=== PATIENT | male | born 1990 | race Caucasian/White ===

== ENCOUNTER 2021-04-03 11:20 | Emergency (ER) | payer SELFPAY ==
--- NOTE | ~2021-04-03 | CT_ITS ---
EXAMINATION: CT SOFT TISSUE NECK WITH CONTRAST CLINICAL INFORMATION: Right-sided neck pain radiating to the ears. COMPARISON: None available. TECHNIQUE: Multidetector helical imaging was performed in the axial plane following the administration of 60 mL of Omnipaque 350 intravenous contrast. Multiple axial reformats and coronal/sagittal reconstructions were created the technologist workstation for review. This CT examination was performed using dose optimization techniques as appropriate, variously including the following: *Automated exposure control. *Adjustment of mA and/or kV according to patient size (this includes techniques or standardized protocols for targeted exams where dose is matched to indication/reason for exam; i.e. extremities or head). *Use of iterative reconstruction technique. DLP: 684 mGy-cm FINDINGS: No significant cutaneous thickening or subcutaneous inflammation. No discrete fluid collection within the deep tissues of the neck. The premaxillary, retromaxillary, pterygopalatine fossa, orbital apical, parapharyngeal, and prelaryngeal adipose tissue is maintained. Normal appearance of the parotid, submandibular, and thyroid glands. Mildly prominent right level III lymph node measuring 1.4 cm. Otherwise, scattered subcentimeter lymph nodes bilaterally, none of which are pathologically enlarged or abnormally enhancing. No demonstrated focal lesion or abnormal enhancement within the intrinsic tissues of the tongue or floor of mouth. Normal mucosal contours of the pharynx and larynx without abnormal enhancement. Normal appearance of the hyoid bone, thyroid cartilage, or cartilaginous trachea. The airways remains widely patent. No radiopaque foreign bodies. The atlantooccipital and atlantoaxial articulations remain well aligned. Straightening of the normal cervical lordosis. No evidence of acute fracture or subluxation of the cervical spine. The vertebral body heights are maintained. Moderate degenerative disc disease at C5-C6 with disc-osteophyte complex formation. Mild degenerative disc disease at C3-C4, C4-C5, and C6-C7 facet and uncovertebral joint arthropathy leads to osseous encroachment on the neural foramina at C3-C4 and C5-C6. No evidence of epidural collection. There is no prevertebral soft tissue swelling. Normal opacification of the cervical arterial and venous structures. The visualized portion of the skull base is without significant abnormalities. Mild mucosal thickening of the paranasal sinuses. The mastoid air cells and middle ear cavities are clear. No demonstrated significant periapical odontogenic disease. CT Upper Chest: The visualized lung apices and upper mediastinum are within normal limits. CT/CT soft tissue neck w con IMPRESSION: 1. Nonspecific mildly prominent right level III lymph node. No additional cervical lymphadenopathy. 2. No additional demonstrated mass lesion, collection, or abnormal enhancement within the soft tissues of the neck. 3. Mild to moderate degenerative spondyloarthropathy of the cervical spine.
[2021-04-03 11:33] VITALS: BP 125/90; PULSE 88; RESP 16; TEMP 36.7; O2SAT 99; BMI 25.5
[2021-04-03 12:58] LABS: MANUAL DIFF FLAG NO
[2021-04-03 13:00] LABS: Basophils Percent Auto 0.3 % (0-2); Eosinophils Absolute Auto 0.1 X10*3/uL (0.0-0.4); Eosinophils Percent Auto 0.9 % (0-4); Hematocrit 47.8 % (42-52); Hemoglobin 16.1 g/dl (14.0-18.0); Imm Gran Abs Auto 0.06 X10*3/uL (0.00-0.03); Imm Gran Pct Auto 0.6 % (0.0-0.4); Lymphocytes Absolute Auto 1.3 X10*3/uL (1.2-4.9); Lymphocytes Percent Auto 13.6 % (20-40); Mean Corpuscular HGB Conc 33.7 g/dl (31.0-36.0); Mean Corpuscular Hemoglobin 29.1 pg (27.0-33.0); Mean Corpuscular Volume 86.4 fL (80-98); Mean Platelet Volume 10.4 fL (9.4-12.4); Monocytes Absolute Auto 0.5 X10*3/uL (0.1-1.2); Monocytes Percent Auto 5.5 % (2-11); Neutrophils Absolute Auto 7.3 X10*3/uL (2.0-8.3); Neutrophils Percent Auto 79.1 % (45-73); Platelet Count 213 X10*3/uL (160-400); Red Blood Count 5.53 X10*6/uL (4.60-5.80); Red Cell Distribution Width 12.7 % (11.0-16.0); White Blood Count 9.3 X10*3/uL (4.8-10.8)
[2021-04-03 13:07] LABS: IDNOW Serial# 9DD0AD1C; Strep A Nucleic Acid Negative (Negative)
[2021-04-03 13:13] LABS: Alanine Aminotransferase 57 U/L (0-40); Albumin Level 4.8 g/dL (3.5-5.0); Alkaline Phosphatase 70 U/L (39-117); Anion Gap 12 (12-20); Aspartate Amino Transferase 30 U/L (5-37); Bilirubin Total 0.8 mg/dL (0.0-1.0); Blood Urea Nitrogen 12 mg/dL (9-16); Calcium 9.8 mg/dL (8.4-10.2); Carbon Dioxide 28 mmol/L (22-29); Chloride 104 mmol/L (96-108); Creatinine Clr Calc Pharmacy 113.9; Estimated Glomerular Filt Rate > 60; Glucose Random 104 mg/dL (60-115); Potassium 5.1 mmol/L (3.3-5.1); Sodium 139 mmol/L (135-145); Total Protein 7.7 g/dL (6.5-8.0)
[2021-04-03] MEDS: Ketorolac Tromethamine 15 MG/ML VIAL 30 MG IVPUSH (13:35)
--- NOTE | 2021-04-03 14:21 | ED.NECK ---
HPI - Neck Pain/Injury General Chief Complaint: General Medical Stated Complaint: neck pain/jaw pain Time Seen by Provider: 04/03/21 12:21 Source: patient Mode of arrival: ambulatory Limitations: no limitations History of Present Illness HPI Narrative: 30-year-old male presenting to the ED with complaints of atraumatic right lateral neck pain/throat pain that began last Saturday. He reports that he does not have any pain with swallowing. He reports that the pain does radiated to his bilateral jaw and right ear. He reports he has been self medicating with doxycycline at home that he had left over reports some improvement. Reports intermittent headaches. Denies any fevers, chills, sore throat, rhinorrhea, nasal congestion, trouble swallowing or breathing, swelling of the neck, change of voice, chest pain or shortness of breath, cough, dyspnea exertion, orthopnea, rashes or any other symptoms complaints or concerns at this time. MD complaint: neck pain Onset (ago): day(s) (Five days ago) Radiation: right lateral Severity: mild Quality: sharp Duration: constant Relieving factors: none Exacerbating factors: none Associated symptoms: other (Radiating to bilateral jaws and right ear) Treatments prior to arrival: none Related Data Previous Rx's Medication Instructions Recorded doxycycline hyclate 100 mg tablet 100 mg PO BID 10 Days #20 tab 04/03/21 Allergies Allergy/AdvReac Type Severity Reaction Status Date / Time amoxicillin [AMOXICILLIN] Allergy Unknown UNKNOWN Unverified 03/10/20 16:43 penicillin V Allergy Unknown Verified 07/10/19 00:00 Penicillins [PENICILLINS] Allergy Unknown UNKNOWN Unverified 03/10/20 16:43 Review of Systems Review of Systems: Constitutional : No trauma, No Weight loss, No Fever, No Chills, ENT/Mouth : No Hearing loss, No Ear Pain, No Nasal Congestion, No Sinus Pain, No Hoarseness, No sore throat, No Rhinorrhea, No Swallowing Difficulty Cardiovascular : No Chest Pain, No SOB Respiratory : No Cough, No Dyspnea Gastrointestinal : No Nausea, No Vomiting, No Diarrhea, No abdominal Pain, No Hematochezia, No Melena Genitourinary : No Dysuria, No Urinary Frequency, No Hematuria, No Urinary or Bowel Incontinence/retention Musculoskeletal : + Neck pain, No Back pain, No joint stiffness, No joint swelling Skin : No Skin Lesions, No rash or signs of infection Neuro : nO Tingling to b/l arms/legs, No Weakness, No radiation, No Numbness, No headache, no loss of bowel or bladder incontinence, no saddle anesthesia Denies history of IV drug usage. Yes all other systems are reviewed and are negative [facility] Past Medical History Attestation statement: The following information was validated with the patient. Medical History GERD (gastroesophageal reflux disease) Surgical History [place] teeth extracted Social History Social History Advance Directives: No Advance Directives Information Provided: No Physical Exam Vital Signs: Vital Signs: Last Vital Signs Temp 98.1 F 04/03/21 11:33 Pulse 88 04/03/21 11:33 Resp 18 04/03/21 14:30 BP 125/90 H 04/03/21 11:33 Pulse Ox 99 04/03/21 11:33 Body Mass Index 25.5 vital signs have been reviewed as normal and appeared to be correct. Blood pressure normal. Heart rate normal. Respiration rate normal. Temperature normal. Oxygen saturation normal. Appearance: Alert. Oriented X3. No acute distress. Head: Normal external exam. Normocephalic. Atraumatic. Eyes: PERRLA. EOMI. Conjunctiva and sclera normal. Eyelids normal. ENT: Pharynx normal. Uvula midline. Moist mucous membranes. No trismus noted. No drooling noted. No muffled voice noted. Neck: Normal inspection. Neck supple. FROM. No adenopathy. Thyroid Normal. Trachea midline. No meningeal signs. No neck mass noted. Tender to palpation of right anterior/lateral paracervical musculature. No mid cervical tenderness step-off or deformities are noted. Patient neuro intact bilaterally and distally on all 4 extremities. Reflexes intact bilaterally and distally in all 4 extremities. No rashes/lesion/induration/fluctuance or signs of infection noted. No edema noted. CVS: Normal heart rate and rhythm. Heart sound normal. No murmurs noted. Pulses normal throughout. Respiratory: No respiratory distress. Painless inspiration. Breath sounds normal. No wheezes/rales/rhonchi noted. Chest nontender. No accessory muscle usage noted or decreased air movement noted. Back: Full range of motion noted. No obvious deformities, or edema. Full ROM in back and lower extremities. Skin: Skin warm and dry. Normal skin color. Normal skin turgor. No rashes/lesions/lacerations noted. Extremities: Extremities exhibit normal range of motion. Extremities nontender. Neuro: Oriented X 3. No motor deficit. No sensory deficit. Reflexes normal. Normal steady gait. Course Course Course Narrative: 12:35pm 30-year-old male presenting to the ED with complaints of atraumatic right lateral neck pain/throat pain that began last Saturday. He reports that he does not have any pain with swallowing. He reports that the pain does radiated to his bilateral jaw and right ear. He reports he has been self medicating with doxycycline at home that he had left over reports some improvement. Reports intermittent headaches. Denies any fevers, chills, sore throat, rhinorrhea, nasal congestion, trouble swallowing or breathing, swelling of the neck, change of voice, chest pain or shortness of breath, cough, dyspnea exertion, orthopnea, rashes or any other symptoms complaints or concerns at this time. Pt c likely muscular pain, but could be herniated disc. Neuro exam shows no deficits. Not c/w vascular etiology, perivertebral / other soft tissue neck / airway infection, or spinal fx / process. Although patient very concerned therefore will obtain labs and a CT scan of soft tissue neck to evaluate for possible masses or any other acute processes then re-evaluate. Reevaluation(s) Reevaluation #1: - ALT 57 otherwise all other labs are within normal limits. Rapid strep is negative. CT scan of soft tissue neck with IV contrast 3 lymph node otherwise no other acute processes only chronic changes. Therefore I gave him a copy of the results and he asked for prescription of doxycycline as he reports that he started taking it and it is helping his symptoms could be a possibly pharyngitis that was negative on rapid strep therefore will DC home with instructions follow-up with primary care provider and to return if any new or worsening symptoms. Patient understands agrees with this plan. Time: 15:08 [facility] - Neck Pain/Injury Medical Records Attestation: I reviewed the patient's medical records. Lab Data Attestation: I reviewed the patient's lab results. Result diagrams: 04/03/21 12:54 04/03/21 12:54 Labs: Lab Results 04/03/21 04/03/21 04/03/21 Range/Units 12:54 12:54 12:55 WBC 9.3 (4.8-10.8) X10*3/uL RBC 5.53 (4.60-5.80) X10*6/uL Hgb 16.1 (14.0-18.0) g/dl Hct 47.8 (42-52) % MCV 86.4 (80-98) fL MCH 29.1 (27.0-33.0) pg MCHC 33.7 (31.0-36.0) g/dl RDW 12.7 (11.0-16.0) % Plt Count 213 (160-400) X10*3/uL MPV 10.4 (9.4-12.4) fL Immature Gran % (Auto) 0.6 H (0.0-0.4) % Neut % (Auto) 79.1 H (45-73) % Lymph % (Auto) 13.6 L (20-40) % [place] % (Auto) 5.5 (2-11) % Eos % (Auto) 0.9 (0-4) % Baso % (Auto) 0.3 (0-2) % Lymph # (Auto) 1.3 (1.2-4.9) X10*3/uL [place] # (Auto) 0.5 (0.1-1.2) X10*3/uL Eos # (Auto) 0.1 (0.0-0.4) X10*3/uL Baso # (Auto) 0.0 (0.0-0.2) X10*3/uL Abs Immat Gran (auto) 0.06 H (0.00-0.03) X10*3/uL Absolute Neuts (auto) 7.3 (2.0-8.3) X10*3/uL Absolute Nucleated RBC 0.000 (0.0-0.012) X10*3/uL Nucleated RBC % (auto) 0.0 (0.0-0.2) /100WBC Sodium 139 (135-145) mmol/L Potassium 5.1 (3.3-5.1) mmol/L Chloride 104 (96-108) mmol/L Carbon Dioxide 28 (22-29) mmol/L Anion Gap 12 (12-20) BUN 12 (9-16) mg/dL Creatinine 0.87 (0.5-1.4) mg/dL Estim Creat Clear Calc 113.9 Estimated GFR > 60 Random Glucose 104 (60-115) mg/dL Calcium 9.8 (8.4-10.2) mg/dL Magnesium 2.0 (1.6-2.6) mg/dL Total Bilirubin 0.8 (0.0-1.0) mg/dL AST 30 (5-37) U/L ALT 57 H (0-40) U/L Alkaline Phosphatase 70 (39-117) U/L Total Protein 7.7 (6.5-8.0) g/dL Albumin 4.8 (3.5-5.0) g/dL TSH 1.00 (0.32-4.0) uIU/mL S. pyogenes GrpA COSME Negative (Negative) Imaging Data CT scan of soft tissue neck with IV contrast: Attestation: I personally reviewed and interpreted this imaging study as follows: Radiologist's impression: FINDINGS: No significant cutaneous thickening or subcutaneous inflammation. No discrete fluid collection within the deep tissues of the neck. The premaxillary, retromaxillary, pterygopalatine fossa, orbital apical, parapharyngeal, and prelaryngeal adipose tissue is maintained. Normal appearance of the parotid, submandibular, and thyroid glands. Mildly prominent right level III lymph node measuring 1.4 cm. Otherwise, scattered subcentimeter lymph nodes bilaterally, none of which are pathologically enlarged or abnormally enhancing. No demonstrated focal lesion or abnormal enhancement within the intrinsic tissues of the tongue or floor of mouth. Normal mucosal contours of the pharynx and larynx without abnormal enhancement. Normal appearance of the hyoid bone, thyroid cartilage, or cartilaginous trachea. The airways remains widely patent. No radiopaque foreign bodies. The atlantooccipital and atlantoaxial articulations remain well aligned. Straightening of the normal cervical lordosis. No evidence of acute fracture or subluxation of the cervical spine. The vertebral body heights are maintained. Moderate degenerative disc disease at C5-C6 with disc-osteophyte complex formation. Mild degenerative disc disease at C3-C4, C4-C5, and C6-C7 facet and uncovertebral joint arthropathy leads to osseous encroachment on the neural foramina at C3-C4 and C5-C6. No evidence of epidural collection. There is no prevertebral soft tissue swelling. Normal opacification of the cervical arterial and venous structures. The visualized portion of the skull base is without significant abnormalities. Mild mucosal thickening of the paranasal sinuses. The mastoid air cells and middle ear cavities are clear. No demonstrated significant periapical odontogenic disease. CT Upper Chest: The visualized lung apices and upper mediastinum are within normal limits. CT/CT soft tissue neck w con IMPRESSION: 1. Nonspecific mildly prominent right level III lymph node. No additional cervical lymphadenopathy. ? 2. No additional demonstrated mass lesion, collection, or abnormal enhancement within the soft tissues of the neck. ? 3. Mild to moderate degenerative spondyloarthropathy of the cervical spine. Critical Care Time Critical Care Time Critical Care Time: Yes Total Critical Care Time: 60 Attestation: I personally attest to this time spent taking care of the patient Discharge Plan Discharge Clinical Impression: Enlarged lymph node in neck, Neck pain Patient Disposition: Home, Self-Care Instructions: Lymphadenopathy (ED) Prescriptions: New doxycycline hyclate 100 mg tablet 100 mg PO BID 10 Days Qty: 20 RF: 0 Referrals: Reymundo Mcgarry [Physician] - 2 days (If your symptoms persist you should follow-up with ear nose and throat doctor you can call above) Stand Alone Forms: Work/School Release Print Language: Iranian
[2021-04-03 14:30] VITALS: RESP 18
[2021-04-03] MEDS: iohexoL 350 MG/ML 100 ML INFUS..BTL IV (14:30)
== END 2021-04-03 15:15 | disposition home or self-care (01) ==
PROVIDERS: Physician Assistant Medical; Emergency Provider Emergency Medicine; PCP Internal Medicine
DX: M54.2 Cervicalgia (principal); R59.0 Localized enlarged lymph nodes
CPT/HCPCS: 36415; 70491; 80053; 83735; 84443; 85025; 87651; 96374; 99284; 99291; J1885; Q9967

== ENCOUNTER 2021-11-28 04:32 | Emergency (ER) | payer OTHER, SELFPAY ==
--- NOTE | ~2021-11-28 | XR_ITS ---
EXAMINATION: XR CHEST CLINICAL INFORMATION: Cough COMPARISON: None TECHNIQUE: 2 views of the chest were obtained. FINDINGS: No significant abnormality is noted involving the heart, lungs, mediastinum, bony thorax or soft tissues. XR/XR chest 2V IMPRESSION: Unremarkable examination.
[2021-11-28 04:40] VITALS: BP 133/90; PULSE 93; RESP 18; TEMP 36.7; O2SAT 95; BMI 25.8
--- NOTE | 2021-11-28 04:48 | ED_ITS ---
HPI - URI/Sore Throat General Chief Complaint: Upper Respiratory Symptoms Stated Complaint: ongoing cough x1 month Time Seen by Provider: 11/28/21 04:34 Source: patient Mode of arrival: ambulatory Limitations: no limitations History of Present Illness MD elicited complaint: cough Onset (ago): month(s) (1) Consistency: intermittent Severity: moderate Description of mucous: green Able to tolerate fluids by mouth: Yes Exacerbating factors: nothing Relieving factors: nothing Context: other (possibly started after staying at a hotel with air conditioning) Associated symptoms: fever (at beginning of illness) Treatments prior to arrival: none Related Data Previous Rx's Medication Instructions Recorded doxycycline hyclate 100 mg tablet 100 mg PO BID 10 Days #20 tab 04/03/21 benzonatate 100 mg capsule 100 mg PO TID PRN #20 cap 11/28/21 doxycycline hyclate 100 mg capsule 100 mg PO BID 7 Days #14 cap 11/28/21 prednisone 20 mg tablet 40 mg PO DAILY 5 Days #10 tab 11/28/21 Allergies Allergy/AdvReac Type Severity Reaction Status Date / Time amoxicillin [AMOXICILLIN] Allergy Unknown UNKNOWN Unverified 03/10/20 16:43 penicillin V Allergy Unknown Verified 07/10/19 00:00 Penicillins [PENICILLINS] Allergy Unknown UNKNOWN Unverified 03/10/20 16:43 Review of Systems Review of Systems: Constitutional : No Fever, No Chills ENT/Mouth : No sore throat, No Rhinorrhea Eyes: No Eye Pain, No Swelling, No Redness Cardiovascular : No Chest Pain, No SOB Respiratory : pos Cough, pos Sputum, No Wheezing Gastrointestinal : No Nausea, No Vomiting, No Diarrhea Genitourinary : No Dysuria, No Urinary Frequency, No Hematuria, Musculoskeletal : No joint pain, No Myalgias, No Joint Swelling Skin : No Skin Lesions, No rash Neuro : No Weakness, No Numbness, No Dizziness, No Headache PMFSH Past Medical History Attestation statement: The following information was validated with the patient. Medical History GERD (gastroesophageal reflux disease) Surgical History [place] teeth extracted Social History Social History Alcohol intake: unknown Patient Tobacco Use Status: Never used Tobacco Use of substances other than those prescribed or required for medical reasons: Yes Substance Use Type: Marijuana Physical Exam Vital Signs: Vital Signs: Last Vital Signs Temp 98.1 F 11/28/21 04:40 Pulse 93 11/28/21 04:40 Resp 18 11/28/21 04:40 BP 133/90 H 11/28/21 04:40 Pulse Ox 95 11/28/21 04:58 BMI result Body Mass Index 25.8 Appearance: Alert. Oriented X3. No acute distress. Eyes: Pupils equal, round and reactive to light. ENT: Pharynx normal. Neck: Normal inspection. Neck supple. CVS: Normal heart rate and rhythm. Pulses normal. Respiratory: No respiratory distress. Breath sounds normal. Abdomen: Soft and non-tender. Skin: Skin warm and dry. Normal skin color. Normal skin turgor. Extremities: No lower extremity edema. Neuro: Oriented X 3. No motor deficit. No sensory deficit. 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 At this time COVID swab and CXR for pneumonia ordered. Anticipate treatment for bronchitis - no hypoxia. Discharge Plan Discharge Clinical Impression: Bronchitis Patient Disposition: Home, Self-Care Instructions: Acute Bronchitis (ED) Additional Instructions: return to ED for any worsening symptoms or concerns xray shows no pneumonia COVID negative Prescriptions: New doxycycline hyclate 100 mg capsule 100 mg PO BID 7 Days Qty: 14 0RF prednisone 20 mg tablet 40 mg PO DAILY 5 Days Qty: 10 0RF benzonatate 100 mg capsule 100 mg PO TID PRN (Reason: cough) Qty: 20 0RF No Action doxycycline hyclate 100 mg tablet 100 mg PO BID 10 Days Qty: 20 0RF Referrals: Ernie Schmidt III, MD [Primary Care Provider] - 5 days (if not better) Stand Alone Forms: Work/School Release
[2021-11-28 04:58] VITALS: PULSE 65; O2SAT 95
[2021-11-28 05:30] LABS: COVID-19 Test Negative (Negative); IDNOW Serial# 9DB6401D
== END 2021-11-28 06:02 | disposition home or self-care (01) ==
PROVIDERS: Emergency Provider Emergency Medicine; PCP Internal Medicine
DX: J40 Bronchitis, not specified as acute or chronic (principal); Z20.822 Contact with and (suspected) exposure to COVID-19; F12.90 Cannabis use, unspecified, uncomplicated
CPT/HCPCS: 71046; 87635; 99283; 99284

== ENCOUNTER 2023-10-15 16:35 | Emergency (ER) | payer BC, SELFPAY ==
[2023-10-15 17:30] VITALS: BP 163/114; PULSE 94; RESP 18; TEMP 36.9; O2SAT 98; BMI 26.9
--- NOTE | 2023-10-15 18:45 | ED_ITS ---
HPI - Wound/Laceration General Chief Complaint: Wound/Laceration Stated Complaint: thumb laceration? Time Seen by Provider: 10/15/23 18:45 Source: patient and RN notes reviewed Mode of arrival: ambulatory Limitations: no limitations History of Present Illness HPI narrative: This is a 33-year-old male, with no known medical problems, who presents emergency department with complaints of right thumb laceration. Patient states that he was using a mandolin when suddenly he lacerated his right thumb. He states that the area bled a lot last night however states that today it is no longer bleeding. He reports some pain, but concerned as top skin is absent. No fevers, chills, difficulty moving the thumb. He is unsure when his last tetanus was. No fevers or chills. No other complaints or concerns at this time. Onset (ago): day(s) Context: accidental Associated symptoms: none Related Data Previous Rx's ?Medication ?Instructions ?Recorded doxycycline hyclate 100 mg tablet 100 mg PO BID 10 days #20 tabs 04/03/21 benzonatate 100 mg capsule 100 mg PO TID PRN cough #20 caps 11/28/21 doxycycline hyclate 100 mg capsule 100 mg PO BID 7 days #14 caps 11/28/21 prednisone 20 mg tablet 40 mg (2 x 20 mg) PO DAILY 5 days 11/28/21 #10 tabs Allergies Allergy/AdvReac Type Severity Reaction Status Date / Time amoxicillin [AMOXICILLIN] Allergy Unknown UNKNOWN Verified 10/15/23 17:34 penicillin V Allergy Unknown Anaphylaxis Verified 10/15/23 17:34 Penicillins [PENICILLINS] Allergy Unknown UNKNOWN Verified 10/15/23 17:34 Review of Systems Review of Systems: Yes all other systems are reviewed and are negative Constitutional: Constitutional: Reports as per HPI [facility] Past Medical History Medical History GERD (gastroesophageal reflux disease) Surgical History [place] teeth extracted Social History Social History Alcohol intake: unknown Patient Tobacco Use Status: Never used Tobacco Substance Use Type: Marijuana Advance Directives: No Advance Directives Information Provided: No Physical Exam Vital Signs: Vital Signs: Last Vital Signs Temp 98.0 F 04/23/24 19:01 Pulse 90 10/15/23 19:01 Resp 18 10/15/23 19:01 BP 158/96 H 10/15/23 19:01 Pulse Ox 98 10/15/23 19:01 O2 Del Method Room Air 10/15/23 19:01 BMI result Body Mass Index 26.9 Const: General: cooperative, comfortable and no acute distress Orientation/consciousness: patient oriented x3 Limitations: no limitations HEENT: Head: Yes normal to inspection, Yes normocephalic and Yes atraumatic Ears: hearing grossly normal bilaterally General nose exam: Normal external nose present Face and sinus: Yes normal facial exam Mouth: Normal oral and palatal mucosa present, oropharynx normal and moist mucous membranes Throat: Yes posterior oropharynx normal Eyes: General: appearance normal, both eyes and all related structures Eyelids: Yes eyelids normal Conjunctivae: conjunctivae normal Sclerae: sclerae normal Pupils: Equal, round and reactive pupils present EOM: EOMs intact bilaterally Neck: Neck: Yes normal visual inspection, Yes full ROM and Yes no lymphadenopathy Lymphatic: no lymphadenopathy noted Chest: Chest palpation & inspection: normal inspection of the chest Resp: Effort & Inspection: normal respiratory effort and able to speak in complete sentences Auscultation: clear to auscultation bilaterally, no crackles, no rales, no rhonchi and no wheezes Cardio: Rate: regular rate Rhythm: regular rhythm Heart sounds: S1 normal heart sound present and S2 normal heart sound present GI: Inspection: Yes normal to inspection Skin: Other: Right thumb lateral aspect there is 2 cm superficial avulsion laceration noted. No active bleeding or drainage. No surrounding erythema or warmth. No fluctuance. Tender to palpation, full range of motion of the thumb without difficulty. Strong radial pulse. General skin exam: no rashes or lesions noted Trauma: no lacerations or abrasions Wounds: no wounds Neuro: General: patient oriented x3 and moves all extremities Cranial nerves: Yes Equal, round and reactive pupils present Extrem: General: Yes normal to inspection Right upper extremity: normal to inspection Left upper extremity: normal to inspection Right lower extremity: normal to inspection Left lower extremity: normal to inspection Medications Administered Discontinued Medications Generic Name Dose Route Start Last Admin Trade Name Freq PRN Reason Stop Dose Admin Diphtheria/Tetanus/Acell Pertussis 0.5 ml 10/15/23 18:49 10/15/23 19:46 Diphth,Pertus(Acell),Tet Adult 0.5 Ml Syringe IM 10/15/23 18:50 0.5 ml .ONCE ONE Administration Medical Decision Making Medical Decision Making MDM Narrative: This is a 33-year-old male, with no known medical problems, who presents e [facility] department complaints of right thumb laceration since last night. Patient states that he accidentally lacerated his right thumb on a mandolin. Right thumb with 2 cm avulsion type laceration noted to the lateral aspect of the thumb, no bleeding. Patient unsure when his last tetanus was. Wound was cleansed with Betadine and saline, and Dermabond was applied to wound. Patient tolerated procedure well without any complications or concerns. He has no risk factors for skin infections therefore not treated with any antibiotics as it has not indicated at this time. Discussed return precautions. He understands and agrees with plan. Patient stable for discharge. Differential Diagnosis Differential Diagnoses: The differential diagnosis associated with the presentation includes Puncture wound, cellulitis, avulsion laceration, foreign body Admission/Observation Consideration of admission/observation: Escalation of care including admission/observation considered Escalation of care including admission/observation considered however given workup today not warranted at this time. Procedures Procedure Narrative Procedure Narrative: Wound cleansed using Betadine and saline, closed using Dermabond and dressed with bandage. Patient tolerated procedure well without any complications or concerns. Discharge Plan Discharge Clinical Impression: Avulsion of skin Patient Disposition: Home, Self-Care Instructions: Laceration (ED), Skin Adhesive Care (ED) Additional Instructions: You were seen in the ER for a laceration to your right thumb. We applied skin glue to this area. Do not pick at wound. Do not submerge wound. If the wound gets wet, pat dry. Watch for any increased redness, swelling, drainage, fevers, or chills. If any new or worsening symptoms occur, including but not limited to the above symptoms, chest pain, shortness breast, please return for re-evaluation. Prescriptions: No Action doxycycline hyclate 100 mg tablet 100 mg PO BID 10 Days Qty: 20 0RF doxycycline hyclate 100 mg capsule 100 mg PO BID 7 Days Qty: 14 0RF prednisone 20 mg tablet 40 mg PO DAILY 5 Days Qty: 10 0RF benzonatate 100 mg capsule 100 mg PO TID PRN (Reason: cough) Qty: 20 0RF Interventions: ED Discharge Assessment Last Done: 10/15/23 19:01 Discharge Date/Time: 10/15/23 19:02 Print Language: Welsh
[2023-10-15 19:01] VITALS: BP 158/96; PULSE 90; RESP 18; TEMP 36.7; O2SAT 98
[2023-10-15] MEDS: Diphth,Pertus(ACell),Tet Adult 0.5 ML SYRINGE IM (19:46)
== END 2023-10-15 19:05 | disposition home or self-care (01) ==
PROVIDERS: Emergency Provider Emergency Medicine Emergency Medical Services; PCP Internal Medicine
DX: S61.011A Laceration without foreign body of right thumb without damage to nail, initial encounter (principal); W26.0XXA Contact with knife, initial encounter; Y93.9 Activity, unspecified; Y92.9 Unspecified place or not applicable; Y99.9 Unspecified external cause status; Z23 Encounter for immunization
CPT/HCPCS: 12001; 90471; 90715; 99282; 99284

== ENCOUNTER 2024-11-24 23:21 | Emergency (ER) | payer OTHER, BC, SELFPAY ==
--- NOTE | ~2024-11-24 | CT_ITS ---
CLINICAL HISTORY: bicep tear? CT right humerus without contrast Comparison: None Findings: The long head of the biceps tendon appears to be normally positioned within the bicipital groove. The intra-articular portion of the long head of the biceps tendon is poorly visualized on CT. The short head of the biceps tendon is poorly visualized on CT. The distal biceps tendon is poorly visualized on CT. No hematoma is identified. There is no fracture. Joint alignment is normal. Joint spaces appear normal. IMPRESSION: Limited evaluation of the biceps tendon by CT as described above. The portion of the long head of the biceps tendon within the bicipital groove is probably intact. Consider MRI if a biceps injury remains a clinical concern. This document has been electronically signed by: Kamaljit Kennedy MD on 11/25/2024 04:11:50
[2024-11-24 23:31] VITALS: BP 153/93; PULSE 92; RESP 16; O2SAT 97; BMI 27.1
[2024-11-25] MEDS: Ketorolac Tromethamine 15 MG/ML VIAL IM (02:34)
--- NOTE | 2024-11-25 03:18 | ED.EXTPRO ---
HPI - Extremity Problem General Chief complaint: Extremity Injury, Upper Stated complaint: right arm injury Time Seen by Provider: 11/25/24 01:31 Source: patient Limitations: no limitations History of Present Illness ED Provider: Karie Muñoz PA-C HPI Narrative: 34-year-old male presents with right bicep pain. Patient states while at work, he was attempting to lift a heavy cart, he heard a popping in his right biceps , then developed acute pain and swelling. Patient has no pain unless he engages his bicep. denies paresthesia. Related Data Previous Rx's ?Medication ?Instructions ?Recorded doxycycline hyclate 100 mg tablet 100 mg PO BID 10 days #20 tabs 04/03/21 benzonatate 100 mg capsule 100 mg PO TID PRN cough #20 caps 11/28/21 doxycycline hyclate 100 mg capsule 100 mg PO BID 7 days #14 caps 11/28/21 prednisone 20 mg tablet 40 mg (2 x 20 mg) PO DAILY 5 days 11/28/21 #10 tabs ketorolac 10 mg tablet 10 mg PO Q6H PRN pain #20 tabs 11/25/24 oxycodone 5 mg tablet 5 mg PO Q8H PRN pain #9 tabs 11/25/24 Allergies Allergy/AdvReac Type Severity Reaction Status Date / Time amoxicillin [AMOXICILLIN] Allergy Unknown UNKNOWN Verified 11/24/24 23:33 penicillin V Allergy Unknown Anaphylaxis Verified 11/24/24 23:33 Penicillins [PENICILLINS] Allergy Unknown UNKNOWN Verified 11/24/24 23:33 Review of Systems Review of Systems: Yes all other systems are reviewed and are negative Constitutional: Constitutional: Denies fatigue and Denies fever(s) Musculoskeletal: Musculoskeletal: Reports arthralgias, Reports joint swelling and Reports stiffness Endocrine: Endocrine: Denies fatigue PMFSH Past Medical History Attestation statement: The following information was validated with the patient. Medical History GERD (gastroesophageal reflux disease) Surgical History [place] teeth extracted Social History Social History Alcohol intake: never Patient Tobacco Use Status: Never used Tobacco Smoked in Last 30 Days: No Use of substances other than those prescribed or required for medical reasons: No Substance Use Type: Marijuana Advance Directives: No Do you have a plan to hurt others: No Plan Physical Exam Vital Signs: Vital Signs: Last Vital Signs Pulse 92 11/24/24 23:31 Resp 16 11/24/24 23:31 BP 153/93 H 11/24/24 23:31 Pulse Ox 97 11/24/24 23:31 O2 Del Method Room Air 11/24/24 23:31 BMI result Body Mass Index 27.1 Const: Other: Alert Orientation/consciousness: patient oriented x3 Resp: Effort & Inspection: normal respiratory effort Cardio: Other: normal peripheral perfusion Skin: Other: warm dry no rash Neuro: General: patient oriented x3, gait normal, no focal motor deficits and CN's II-XI intact bilaterally Extrem: Other: no palpable pain over bicipital groove,the right bicep is tense and swollen, patient able to range from the shoulder, however limited from the elbow, developing ecchymosis noted anteriorly over the biceps Psych: Other: calm cooperative Medications Administered Discontinued Medications Generic Name Dose Route Start Last Admin Trade Name Douglasq PRN Reason Stop Dose Admin Ketorolac Tromethamine 15 mg 11/25/24 01:34 11/25/24 02:34 Ketorolac Tromethamine 15 Mg/Ml Vial IM 11/25/24 01:35 15 mg ONCE ONE Administration Medical Decision Making Medical Decision Making MDM Narrative: 34-year-old male presents with right bicep pain. Patient states while at work, he was attempting to lift a heavy cart, he heard a popping in his right biceps , then developed acute pain and swelling. Patient has no pain unless he engages his bicep. denies paresthesia. no chronic issues History: Per patient I have considered the following differential diagnoses: Fracture, dislocation, sprain, biceps tear, biceps tendon rupture, compartment syndrome Plan: I do not see an obvious deformity, I do not feel he has a biceps tendon rupture, I feel he likely has a biceps tear. We will be obtaining a CT scan. Given the mechanism of injury, likely not a fracture or dislocation of the shoulder or elbow. The incident just occurred, doubtful to be compartment syndrome, he is warm, perfused, neurovascularly intact, his pain is not out of proportion with the his exam. We will be giving Toradol for his discomfort CT right humerus:IMPRESSION: Limited evaluation of the biceps tendon by CT as described above. The portion of the long head of the biceps tendon within the bicipital groove is probably intact. Consider MRI if a biceps injury remains a clinical concern. Discharge Plan Discharge Clinical Impression: Tear of right biceps muscle Patient Disposition: Home, Self-Care Instructions: Muscle Strain (ED), How to Use a Sling (ED), P.R.I.C.E. Treatment (ED) Additional Instructions: you were found to have a partial biceps tear. See home care instructions. Use the sling to help support your upper extremity. Use the ketorolac as directed, this is an anti-inflammatory take it with food. Use the oxycodone as needed for further pain, this medication can be constipating, take [id number] Colace, this is a stool softener, to prevent constipation. I am providing you with a contact for our orthopedic service, call tomorrow to make a follow up appointment. Prescriptions: New ketorolac 10 mg tablet 10 mg PO Q6H PRN (Reason: pain) Qty: 20 0RF Rx Instructions: maximum total duration of 5 days from all oral, intranasal, or parenteral formulations. The patient had an intramuscular dose of Toradol here in the emergency room. oxycodone 5 mg tablet 5 mg PO Q8H PRN (Reason: pain) Qty: 9 0RF Rx Instructions: Partial Fill upon patient request. No Action doxycycline hyclate 100 mg tablet 100 mg PO BID 10 Days Qty: 20 0RF doxycycline hyclate 100 mg capsule 100 mg PO BID 7 Days Qty: 14 0RF prednisone 20 mg tablet 40 mg PO DAILY 5 Days Qty: 10 0RF benzonatate 100 mg capsule 100 mg PO TID PRN (Reason: cough) Qty: 20 0RF Referrals: Gentry Shultz MD [Physician] - (right biceps tear) Stand Alone Forms: Work/School Release Print Language: Icelandic
[2024-11-25 04:28] VITALS: BP 153/93; PULSE 92; RESP 16; TEMP 36.6; O2SAT 97
== END 2024-11-25 04:30 | disposition home or self-care (01) ==
PROVIDERS: Emergency Provider Emergency Medicine; PCP Internal Medicine
DX: S46.211A Strain of muscle, fascia and tendon of other parts of biceps, right arm, initial encounter (principal); X50.0XXA Overexertion from strenuous movement or load, initial encounter; Y93.89 Activity, other specified; Y92.9 Unspecified place or not applicable; Y99.0 Civilian activity done for income or pay; M79.601 Pain in right arm
CPT/HCPCS: 73200; 96372; 99284; J1885

== ENCOUNTER → 2024-11-25 01:34 | Outpatient (BNV) | payer OTHER, SELFPAY | PROVIDERS: Emergency Provider Emergency Medicine; PCP Internal Medicine; Visit Provider Radiology Diagnostic Radiology | DX: S46.201A Unspecified injury of muscle, fascia and tendon of other parts of biceps, right arm, initial encounter (principal) | CPT/HCPCS: 73200 ==

== ENCOUNTER 2024-11-26 09:46 | Outpatient (AMB) | payer OTHER, SELFPAY ==
--- NOTE | 2024-11-26 09:47 | A.OFFVIS_ITS ---
Vital Signs 11/26/24 09:53 Height 5 ft 7 in Weight 173 lb BMI 27.1 Handedness Right Intake Visit Reasons: ER f/u Rt bicep muscle tear DOI: 11/24/24 Intake Note: Daryl is a 34 year old right hand dominant male who presents today for a ED visit for his right bicep injury, WC 11/24/24. He states was attempting to lift a heavy cart, he heard a tear in his right biceps , then developed acute pain and swelling. Patient reports his pain is tolerable. He notices feels some muscle spasms. ROM is limited. He states at the date of injury he notices numbness in his hand. Patient is unable to make a fist. Allergies amoxicillin [AMOXICILLIN] Allergy (Unknown, Verified 11/26/24 09:53) UNKNOWN penicillin V Allergy (Unknown, Verified 11/26/24 09:53) Anaphylaxis Penicillins [PENICILLINS] Allergy (Unknown, Verified 11/26/24 09:53) UNKNOWN HPI HPI ER f/u Rt bicep muscle tear WC DOI: 11/24/24: Details: Mr. Calzada is a 34-year-old right-hand dominant male who presents to the office today for evaluation of a right distal biceps tendon injury that he sustained while at work on 11/24/2024. He reports that he was trying to lift a shop cart and felt a sharp pain with a popping sensation. He saw an immediate deformity of the right biceps muscle. He presented to the emergency department where he was given a sling and instructed to follow up with orthopedics outpatient for further evaluation and treatment. 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 Positive hook test. Difficulty with elbow flexion and extension. NVI. Assessment & Plan Assessment & Plan (1) Rupture of right distal biceps tendon: Code(s): S46.211A - Strain of muscle, fascia and tendon of other parts of biceps, right arm, initial encounter Category: Medical Plan Mr. Calzada is a 34-year-old right-hand dominant male who presents to the office today for evaluation of a right distal biceps tendon injury that he sustained while at work on 11/24/2024. He reports that he was trying to lift a shop cart and felt a sharp pain with a popping sensation. He saw an immediate deformity of the right biceps muscle. He presented to the emergency department where he was given a sling and instructed to follow up with orthopedics outpatient for further evaluation and treatment. While in the office today, Dr. Shultz was available to see the patient with me in the office in a collaborative treatment plan was created. Dr. Shultz and Idiscussed in detail the procedure and what to expect pre and post operatively. We discussed the risks, benefits and alternatives to the surgery as well as the rehabilitation course. The risks; which include, but are not limited to infection, bleeding, nerve injury, ongoing pain, swelling, and stiffness, perioperative risk of injury to bones and soft tissues, and blood clots. I?ve answered all questions and with their understanding they have consented to move forward with right distal biceps tendon repair with Dr. Shultz. Coding Level of Care Code New Pt Level 4 (85504) Diagnoses Rupture of right distal biceps tendon S46.211A
[2024-11-26 09:53] VITALS: BMI 27.1
--- OUTSIDE RECORDS SUMMARY | 2024-11-26 11:02 | XMS_ITS | Clinical Summary ---
Author Organization [facility] [address] [place] [address] [place] [phone] Phone Care Team Providers Care Animator Name Role Phone Tyler Pastrana MD Primary Care Provider Allergies Active Allergy Reactions Criticality Noted Date Comments Amoxicillin Rash 05/22/2011 Penicillin V Hives 08/30/2012 Medications albuterol HFA (PROAIR HFA ; PROVENTIL HFA ; VENTOLIN HFA) 90 mcg/actuation inhaler Inhale 2 puffs by mouth. 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 Gastroesophageal reflux disease 02/06/2019 Lactose intolerance 02/06/2019 Depression 12/22/2013 Immunizations Name Administration Dates Next Due Influenza Quadravalent, MDCK , 0.5ml, preservative free (Flucelvax) 6mo and older 04/10/2019 Tdap Tetanus diptheria acell ular pertussis (Boostrix; Adacel) 7yo and older 09/29/2021,04/24/2011 Surgical History Surgery Date Site/Laterality Comments WISDOM TOOTH EXTRACTION 03/2018 PROCEDURE: HISTORICAL WISDOM TEETH EXTRACTION Medical History Medical History Date Comments Cold-induced asthma DX:Cold-davey brooke asthma Back pain DX:Back pain Family History Medical History Relation Name Comments Other: heart disease Father Diabetes Father's side 1 Bipolar disorder Maternal Grandfather Other: Healthy Mother Relation Name Status Comments Father Father's side 1 Father's side 2 Maternal Grandfather Mother Social History Tobacco Use Types Packs/Day Years Used Date Smoking Tobacco: Former Cigarettes Q uit: 03/24/2015 Smokeless Tobacco: Never Alcohol Use Standard Drinks/Week Comments Yes 0 (1 standard drink = 0.6 oz pur e alcohol) Sex and Gender Information Value Date Recorded Sex Assigned at Not on file Legal Sex Male 10:59 AM EST Gender Identity Not on file Sexual Orientation Not on file Obstetrics History Last Filed Vital Signs Vital Sign Reading Time Taken Comments Blood Pressure 122/70 12/03/2023 5:07 PM EDT Pulse 84 12/03/2023 5:07 PM EDT Temperature - - Respiratory Rate - - Oxygen Saturation - - Inhaled Oxygen Concentration - - Weight 73.5 kg (162 lb) 12/03/2023 5:07 PM EDT Height 170.2 cm (5' 7 ) 12/03/2023 5:07 PM EDT Body Mass Index 25.37 12/03/2023 5:07 PM EDT Plan of Treatment Health Maintenance Due Date Last Done Comments Hepatitis B Vaccines (1 of 3 - 19+ 3-dose series) 2007 Pneumococcal Vaccine: Pediatrics (0 to 5 Years) and At-Risk Patients (6 to 64 Years) (1 of 2 - PCV) 2007 Depression Screening 05/22/2022 HIV Screening 05/22/2022 Hepatitis C Screening 05/22/2022 Social Influencers of Health Screening 05/22/2022 COVID-19 Vaccine (3 - 2023-2 5 season) 2024 10/18/2020, 09/27/2020 Influenza Vaccine (Season Ended) 2025 04/10/2019 Cholesterol Screening (Lipid Panel) 10/02/2026 10/02/2021 DTaP,Tdap,and Td Vaccines (3 - Td or Tdap) 09/30/2031 09/29/2021, 04/24/2011 HIB Vaccines Aged Out No longer eligi ble based on patient's age to complete this topic HPV Vaccines Aged Out No longer eligi ble based on patient's age to complete this topic Hepatitis A Vaccines Aged Out No long er eligible based on patient's age to complete this topic IPV Vaccines Aged Out No longer eligi ble based on patient's age to complete this topic MMR Vaccines Aged Out No longer eligi ble based on patient's age to complete this topic Meningococcal ACWY Vaccine Aged Out N o longer eligible based on patient's age to complete this topic Meningococcal B Vaccine Aged Out No l onger eligible based on patient's age to complete this topic RSV Immunization Patients Under 20 months Aged Out No longer eligible b ased on patient's age to complete this topic Varicella Vaccines Aged Out No longer eligible based on patient's age to complete this topic Care Teams Animator Relationship Specialty Start Date End Date Tyler Pastrana MD [address] [place] [address] PCP - General 08/29/22
== END 2024-11-26 10:39 | disposition home or self-care (01) ==
LOC: HO.HOS 09:47
PROVIDERS: PCP Internal Medicine; Visit Provider Physician Assistant
DX: S46.211A Strain of muscle, fascia and tendon of other parts of biceps, right arm, initial encounter (principal)
CPT/HCPCS: 99204

== ENCOUNTER → 2024-11-26 09:46 | Outpatient (BNVA) | payer OTHER, BC, SELFPAY | PROVIDERS: PCP Internal Medicine; Visit Provider Physician Assistant | DX: S46.211A Strain of muscle, fascia and tendon of other parts of biceps, right arm, initial encounter (principal) | CPT/HCPCS: 99202 ==

== ENCOUNTER 2024-11-27 11:25 | Day surgery (SDC) | payer OTHER, BC, SELFPAY ==
--- NOTE | 2024-11-26 10:52 | P.CONAN_ITS ---
Documented by User: Darcy Navarro NP 11/26/24 10:53 HPI - Anesthesia Eval Consult details Narrative: 34yo M for Right Bicep Tendon Repair [facility] Past Medical History Medical History Asthma GERD (gastroesophageal reflux disease) Surgical History Surgical History H/O vasectomy Hx of LASIK [place] teeth extracted Social History Social History Alcohol intake: never Patient Tobacco Use Status: Former Tobacco user Tobacco use type: Cigarette Use of substances other than those prescribed or required for medical reasons: Yes Substance Use Type: Marijuana Advance Directives: No Advance Directives Information Provided: Yes Poor oral hygiene: No Current occupational status: employed 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 Meds Allergies Allergy/AdvReac Type Severity Reaction Status Date / Time amoxicillin [AMOXICILLIN] Allergy Severe Anaphylaxis Verified 11/27/24 11:56 penicillin V Allergy Severe Anaphylaxis Verified 11/27/24 11:56 Penicillins [PENICILLINS] Allergy Severe Anaphylaxis Verified 11/27/24 11:56 Assessment and Plan Assessment Anesthesia Assessment: Chart Reviewed Documented by User: Te Dior MD 11/27/24 12:29 [facility] Past Medical History Medical History Asthma GERD (gastroesophageal reflux disease) Cognitive capacity: normal l Functional capacity: independent ambulation Family History Family history of problems with anesthesia: No Surgical History Surgical History H/O vasectomy Hx of LASIK [place] teeth extracted History of Problems with Anesthesia: No Social History Social History Alcohol intake: never Patient Tobacco Use Status: Former Tobacco user Tobacco use type: Cigarette Use of substances other than those prescribed or required for medical reasons: Yes Substance Use Type: Marijuana Advance Directives: No Advance Directives Information Provided: Yes Poor oral hygiene: No Current occupational status: employed 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 Discussed Final Anesthetic Review Family History of Problems with Anesthesia: No History of Problems with Anesthesia: No NPO: Yes ASA Class: I Final Preanesthetic Review: No Changes in Pt Med Stat, Meds/Allgs Chart Reviewed, Consent Obtained/Reviewed and Anes Risks/Benef Reviewed Patient Risk: Low Procedure Risk: Low Anesthetic Plan Anesthetic Plan: GA and Regional Block Disposition: Standard PACU
[2024-11-27] VITALS (7 sets, daily range): BP systolic 105–132; BP diastolic 54–82; PULSE 67–86; RESP 16; TEMP 36.4–36.8; O2SAT 91–97; BMI 27.3
--- NOTE | ~2024-11-27 | FL_ITS ---
EXAMINATION: FL GUIDANCE ONLY HISTORY: right bicep tendon repair COMPARISON: Correlation is made with a CT of the right humerus dated 11/25/2024. TECHNIQUE: Fluoroscopy time: 9.92 seconds. Cumulative Dose: 0.3440 mGy. DAP: 0.0208 mGym2 Images: 1. FINDINGS: A single fluoroscopic spot film of the right elbow demonstrates a button along the proximal radius. FL/FL guidance in OR IMPRESSION: Fluoroscopy during procedure. Please see procedure report for additional information. Electronically signed by: Junito Ma MD 11/30/2024 07:08 AM EDT
[2024-11-27] MEDS: Lactated Ringers 1,000 ML 100 ML IVCONT (12:21)
--- NOTE | 2024-11-27 13:07 | MHC.SHP ---
Pre-Procedural Eval Section A - 24 Hr Update-Section A only Date of Service: 11/27/24 The patient is an INPATIENT: No Changes since office visit: No Cold of Flu in the past 2 weeks, No New Medical Problems, No Changes in Medication and No Patient answered all questions The patient has been examined within 24 hours of the surgical procedure. The History & Physical has been completed within 30 days and I have reviewed it.: Yes Section B - Complete if H&P > 30 days Chief Complaint: Spontaneous rupture of other tendons, right upper Allergies: Allergies Allergy/AdvReac Type Severity Reaction Status Date / Time amoxicillin [AMOXICILLIN] Allergy Severe Anaphylaxis Verified 11/27/24 12:31 penicillin V Allergy Severe Anaphylaxis Verified 11/27/24 12:31 Penicillins [PENICILLINS] Allergy Severe Anaphylaxis Verified 11/27/24 12:31 Plan I have reviewed the history and physical and performed a pertinent physical examination on my patient. No changes have occurred unless specified. Time Spent With Patient Time: Total time managing care of this patient today ____ minutes.
[2024-11-27] MEDS: Clindamycin Phosphate/D5W 600 MG/50 ML PIGGYBACK 100 MG IV (13:45)
--- NOTE | 2024-11-27 15:10 | P.BOP_ITS ---
Brief Operative Note Date of Service: 11/27/24 Pre-op diagnosis: Right distal biceps tear Post-op diagnosis: same Procedure: Right distal biceps repair Implants: Arthrex suture button and interference screw Surgeon: Gentry Shultz MD Anesthesia: GETA, GLMA and local Was an Early Childhood Teacher used for this Procedure?: No Estimated blood loss (mL): 20 IV fluids (mL): 750 Pathology: none sent Condition: stable Disposition: PACU
--- NOTE | 2024-12-01 14:03 | W.PM.OPN ---
Operative Note Operative Note Date of Service: 11/27/24 Narrative: Date of Service: 11/27/24 Pre-op diagnosis: Right distal biceps tear Post-op diagnosis: same Procedure: Right distal biceps repair Implants: Arthrex suture button and interference screw Surgeon: Gentry Shultz MD Anesthesia: GETA, GLMA and local Was an Occupational Health Technician used for this Procedure?: No Estimated blood loss (mL): 20 IV fluids (mL): 750 Pathology: none sent Condition: stable Disposition: PACU Procedure in detail: Patient was brought to the operating room and placed supine on the hand table. He was prepped and draped in standard sterile fashion and a time-out was called to identify proper site, proper procedure, proper surgeon. I began by localizing the radial tuberosity. A transverse incision was made at this level and full-thickness skin flaps were developed. Dissection was taken perpendicular to the incision to protect the vessels of the antecubital fossa. The retracted biceps tendon was identified through digital manipulation into the sheath and expression of serosanguineous fluid. I then was able to grasp the fully ruptured distal biceps tendon with a Allis clamp. I then open the Arthrex distal biceps repair kit and whipstitched in the FiberWire into the tendon. The tendon measured a 7.5 and a Beath pin was drilled bicortically at the insertion site. Fluoroscopy was used to confirm the site of drilling. I then over-drilled the near cortex with a 7.5 Reamer. I then loaded the button onto the distal biceps suture and shuttled the button bicortically into the radial tuberosity. The button was flipped and the biceps tightened until I could palpate the biceps do not into the medullary cavity of the bone. I then tightness while in flexion and pronation this allowed full range of motion and full supination and pronation. I then placed the interference screw adjacent to the tendon into the radial tuberosity. Again I was satisfied with the stability of the repair. FiberWire was tied and cut in the elbow taken through full range of motion. There was no change in the repair site through digital or visual inspection and there was full range of motion. Once his got a removed all instrumentation and closed the incision with absorbable 4-0 suture skin glue and Steri-Strips. Patient was placed in sterile dressing and then a well-padded posterior lateral posterior splint and a sling. He is brought to the recovery room in stable condition. There were no known complications.
== END 2024-11-27 16:10 | disposition home or self-care (01) ==
PROVIDERS: PCP Internal Medicine; Visit Provider Orthopaedic Surgery
PROC: (CPT 24341; principal; 2024-11-27 13:00)
DX: S46.211A Strain of muscle, fascia and tendon of other parts of biceps, right arm, initial encounter (principal); M79.621 Pain in right upper arm; M62.838 Other muscle spasm; M79.89 Other specified soft tissue disorders; R20.0 Anesthesia of skin; X50.0XXA Overexertion from strenuous movement or load, initial encounter; Y93.89 Activity, other specified; Y92.69 Other specified industrial and construction area as the place of occurrence of the external cause; Y99.0 Civilian activity done for income or pay; J45.909 Unspecified asthma, uncomplicated; K21.9 Gastro-esophageal reflux disease without esophagitis; Z88.0 Allergy status to penicillin; Z88.1 Allergy status to other antibiotic agents; Z98.890 Other specified postprocedural states; Z87.891 Personal history of nicotine dependence
CPT/HCPCS: 24342; C1713; J0131; J0665; J0736; J1100; J2003; J2250; J2405; J2704; J2795; J3010

== ENCOUNTER → 2024-11-27 11:25 | Outpatient (BNV) | payer OTHER, SELFPAY | PROVIDERS: PCP Internal Medicine; Visit Provider Orthopaedic Surgery | DX: S46.211A Strain of muscle, fascia and tendon of other parts of biceps, right arm, initial encounter (principal) | CPT/HCPCS: 24342 ==

== ENCOUNTER 2024-12-04 10:28 | Outpatient (AMB) | payer OTHER, SELFPAY ==
--- NOTE | 2024-12-04 10:43 | MHC.OFFVIS ---
Intake Visit Reasons: PO RT bicep tendon repair 11/27/24 NE Intake Note: Jevon is a 34 year old right hand dominant male who presents today for a post op appointment s/p right distal bicep repair tendon repair 11/27/24 NE. Patient reports he is doing okay today. He mentions that his pain is tolerable during the day. Allergies amoxicillin [AMOXICILLIN] Allergy (Severe, Verified 12/04/24 10:50) Anaphylaxis penicillin V Allergy (Severe, Verified 12/04/24 10:50) Anaphylaxis Penicillins [PENICILLINS] Allergy (Severe, Verified 12/04/24 10:50) Anaphylaxis HPI HPI PO RT bicep tendon repair 11/27/24 NE: Details: Mr. Elsi renteria is a 34-year-old right-hand dominant male who presents to the office today status post right distal biceps tendon repair performed on 11/27/[address] Shultz. He states overall he is doing very well. He is wearing a splint that was applied while in the operating room as well as a sling. Pain is managed. No additional complaints. 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 No surrounding erythema or drainage. No signs of infection. NVI. Assessment & Plan Assessment & Plan (1) Rupture of right distal biceps tendon: Code(s): S46.211A - Strain of muscle, fascia and tendon of other parts of biceps, right arm, initial encounter Category: Medical Plan Mr. Elsi renteria is a 34-year-old right-hand dominant male who presents to the office today status post right distal biceps tendon repair performed on 11/27/[address] Shultz. He states overall he is doing very well. He is wearing a splint that was applied while in the operating room as well as a sling. Pain is managed. No additional complaints. While in the office today the incision site is clean dry and intact with no signs of infection. I educated the patient on the risks of fully extending the right upper extremity of the elbow i.e. repair failure. I placed the patient into a elbow range of motion brace. Range of motion is locked at 45 degrees of extension with no restrictions on flexion. I placed an order for physical therapy to begin working with the patient on the distal biceps tendon repair protocol. He will follow up in 4 weeks, sooner if needed. Orders: Orders PT Evaluation and Treatment 12/04/24 S46.211A - Strain of muscle, fascia and tendon of other parts of biceps, right arm, initial encounter Coding Level of Care Code Global (99355) Diagnoses Rupture of right distal biceps tendon S46.211A
--- OUTSIDE RECORDS SUMMARY | 2024-12-04 11:30 | XMS_ITS | Clinical Summary ---
Author Organization [facility] [address] [place] [address] [place] [phone] Phone Care Team Providers Care Railroad Auditor Name Role Phone Tyler Pastrana MD Primary Care Provider [phone] Allergies Active Allergy Reactions Criticality Noted Date [...] age to complete this topic Care Teams Railroad Auditor Relationship Specialty Start Date End Date Tyler Pastrana MD [address] [place] [address] PCP - General 08/29/22
== END 2024-12-04 11:50 | disposition home or self-care (01) ==
LOC: HO.HOS 10:29
PROVIDERS: PCP Internal Medicine; Visit Provider Physician Assistant
DX: S46.211A Strain of muscle, fascia and tendon of other parts of biceps, right arm, initial encounter (principal)
CPT/HCPCS: 99024

== ENCOUNTER → 2024-12-04 10:28 | Outpatient (BNVA) | payer OTHER, BC, SELFPAY | PROVIDERS: PCP Internal Medicine; Visit Provider Physician Assistant | DX: S46.211A Strain of muscle, fascia and tendon of other parts of biceps, right arm, initial encounter (principal); Z98.890 Other specified postprocedural states | CPT/HCPCS: 99212 ==

== ENCOUNTER 2024-12-07 13:34 | Outpatient (AMB) | payer OTHER, SELFPAY ==
--- NOTE | 2024-12-07 14:07 | A.OFFVIS_ITS ---
Intake Visit Reasons: PO RT bicep tendon repair 11/27/24 NE-brace change Intake Note: Jevon is a 34 year old male who presents today status post right bicep tendon repair, DOS 11/27/[address] Shultz. Allergies amoxicillin [AMOXICILLIN] Allergy (Severe, Verified 12/07/24 14:12) Anaphylaxis penicillin V Allergy (Severe, Verified 12/07/24 14:12) Anaphylaxis Penicillins [PENICILLINS] Allergy (Severe, Verified 12/07/24 14:12) Anaphylaxis HPI HPI PO RT bicep tendon repair 11/27/24 NE-brace change: Details: Mr. Calzada is a 34-year-old male status post right distal biceps tendon repair on 11/27/2024. Patient was last seen in our office on 12/04/2024. Unfortunately, the patient was placed into the wrong brace. He presents to the office today for a brace change with refitting. 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 No surrounding erythema or drainage. No signs of infection. NVI. Assessment & Plan Assessment & Plan (1) Rupture of right distal biceps tendon: Code(s): S46.211A - Strain of muscle, fascia and tendon of other parts of biceps, right arm, initial encounter Category: Medical Plan Mr. Calzada is a 34-year-old male status post right distal biceps tendon repair on 11/27/2024. Patient was last seen in our office on 12/04/2024. Unfortunately, the patient was placed into the wrong brace. He presents to the office today for a brace change with refitting. While in the office today, the patient was re fit for the range of motion elbow brace. He was locked at 45 degrees of extension with no flexion restriction. F ollow up at his normally scheduled follow up appointment, sooner if needed. Coding Level of Care Code Global (25616) Diagnoses Rupture of right distal biceps tendon S46.211A
--- OUTSIDE RECORDS SUMMARY | 2024-12-07 15:06 | XMS_ITS | Clinical Summary ---
Author Organization [facility] [address] [place] [address] [place] [phone] Phone Care Team Providers Care Lumber Press Operator Name Role Phone Tyler Pastrana MD Primary [...] age to complete this topic Care Teams Lumber Press Operator Relationship Specialty Start Date End Date Tyler Pastrana MD [address] [place] [address] PCP - General 08/29/22
== END 2024-12-07 14:28 | disposition home or self-care (01) ==
PROVIDERS: Absent Provider Physician Assistant; PCP Internal Medicine; Visit Provider Physician Assistant
DX: S46.211A Strain of muscle, fascia and tendon of other parts of biceps, right arm, initial encounter (principal)
CPT/HCPCS: 99024

== ENCOUNTER → 2024-12-07 13:34 | Outpatient (BNVA) | payer OTHER, BC, SELFPAY | PROVIDERS: Absent Provider Physician Assistant; PCP Internal Medicine; Visit Provider Physician Assistant | DX: S46.211A Strain of muscle, fascia and tendon of other parts of biceps, right arm, initial encounter (principal); M79.621 Pain in right upper arm | CPT/HCPCS: 99212 ==

== ENCOUNTER 2025-01-01 12:58 | Outpatient (AMB) | payer OTHER, SELFPAY ==
--- NOTE | 2025-01-01 13:04 | A.OFFVIS_ITS ---
Intake Visit Reasons: PO RT bicep tendon repair 11/27/24 NE Intake Note: Jevon is a 34 year old right hand dominant male who presents today status post right bicep tendon repair, 11/27/[address] Shultz. At the patient's last visit he was placed in a range of motion brace which was locked at 45 degrees of extension with no restrictions on flexion. He was also referred to occupational therapy to begin working on the distal biceps tendon repair protocols. Patient reports no numbness or tingling to report at this time. At this visit he would like to discuss possibly taking off the brace. Patient states that after occupational therapy is when he needs to take pain medications or NSAIDs,therapy is going well. Allergies amoxicillin (AMOXICILLIN) Allergy (Severe, Verified 01/01/25 13:07) Anaphylaxis penicillin V Allergy (Severe, Verified 01/01/25 13:07) Anaphylaxis Penicillins (PENICILLINS) Allergy (Severe, Verified 01/01/25 13:07) Anaphylaxis HPI HPI PO RT bicep tendon repair 11/27/24 NE: Details: Mr. Calzada is a 34-year-old right-hand dominant male who presents to the office today status post right distal biceps tendon repair performed on 11/27/[address] Shultz. The patient's last appointment, he was placed in an elbow zpqte-fk-[id number] brace locked at 45 degrees of extension with no restriction on flexion. He has been participating in physical therapy in which has been going well but he does experience some soreness after his sessions. Overall he is doing very well but is anxious to get out of his woazq-yc-wnlqdx brace. 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 Incision site is well approximated and healed. No surrounding erythema or drainage. No signs of infection. Able to perform full flexion. The brace is unlocked to 120 degrees of extension which the patient is able to comfortably demonstrate. NVI. Assessment & Plan Assessment & Plan (1) Rupture of right distal biceps tendon: Code(s): S46.211A - Strain of muscle, fascia and tendon of other parts of biceps, right arm, initial encounter Category: Medical Plan Mr. Calzada is a 34-year-old right-hand dominant male who presents to the office today status post right distal biceps tendon repair performed on 11/27/[address] Shultz. The patient's last appointment, he was placed in an elbow tvnch-cb-yoremq brace locked at 45 degrees of extension with no restriction on flexion. He has been participating in physical therapy in which has been going well but he does experience some soreness after his sessions. Overall he is doing very well but is anxious to get out of his nfesl-vx-xblfyl brace. While in the office today, we discussed the range of motion elbow brace and per protocol this can be discontinued at week 9-10. Unfortunately, the patient is not quite at that point. Physical therapy will help discontinue the brace at that time wants appropriate. During face 3 weeks 6-10 range of motion may increase to 0-45 degrees of extension and 15-130 degrees of active supination. At week 8 isotonic triceps exercises, isotonic wrist extensor/flexor exercises and shoulder isotonic exercises should begin. The patient also brings in paperwork as he is unable to work at this time due to recent surgery. Patient should remain out of work until follow up. Follow up will be in [address] Shultz, sooner if needed. Coding Level of Care Code Global (33050) Diagnoses Rupture of right distal biceps tendon S46.211A
== END 2025-01-01 13:42 | disposition home or self-care (01) ==
LOC: HO.HOS 12:59
PROVIDERS: PCP Internal Medicine; Visit Provider Physician Assistant
DX: S46.211A Strain of muscle, fascia and tendon of other parts of biceps, right arm, initial encounter (principal)
CPT/HCPCS: 99024

== ENCOUNTER → 2025-01-01 12:58 | Outpatient (BNVA) | payer OTHER, BC, SELFPAY | PROVIDERS: PCP Internal Medicine; Visit Provider Physician Assistant | DX: S46.211A Strain of muscle, fascia and tendon of other parts of biceps, right arm, initial encounter (principal); Z98.890 Other specified postprocedural states | CPT/HCPCS: 99212 ==

== ENCOUNTER 2025-02-11 13:01 | Outpatient (AMB) | payer OTHER, SELFPAY ==
--- NOTE | 2025-02-11 13:02 | A.OFFVIS_ITS ---
Vital Signs 02/11/25 13:05 Height 5 ft 7 in Weight 385 lb 12.943 oz BMI 60.4 Intake Visit Reasons: PO RT bicep tendon repair 11/27/24 NE Intake Note: Jevon is a 34 year old right hand dominant male who presents today for a post operative appointment s/p right bicep tendon repair 11/27/24. He remains out of work at this time. patient reports certain movements cause a slight pain and tension. Allergies amoxicillin (AMOXICILLIN) Allergy (Severe, Verified 01/01/25 13:07) Anaphylaxis penicillin V Allergy (Severe, Verified 01/01/25 13:07) Anaphylaxis Penicillins (PENICILLINS) Allergy (Severe, Verified 01/01/25 13:07) Anaphylaxis HPI HPI PO RT bicep tendon repair 11/27/24 NE: Details: Jevon is a 34 year old right hand dominant male who presents today for a post operative appointment s/p right bicep tendon repair 11/27/24. He remains out of work at this time. patient reports certain movements cause a slight pain and tension. 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 Full extension/flexion right elbow. Full pronation. There is 3-5 degree loss of terminal supination on the. Well-healed transverse distal biceps repair incision clean dry and intact. 5/5 strength with resisted supination with slight pain. Vital Signs: BMI result Body Mass Index 60.4 Assessment & Plan Assessment & Plan (1) Rupture of right distal biceps tendon: Code(s): S46.211A - Strain of muscle, fascia and tendon of other parts of biceps, right arm, initial encounter Category: Medical Plan: Three months status post distal biceps repair. He is doing well but occasional pain. I recommend he return to work with no lifting greater than 15 lb. Follow up 6 weeks and I anticipate return to full duty at that time. Coding Level of Care Code Est Pt Level 3 (09984) Diagnoses Rupture of right distal biceps tendon S46.211A
[2025-02-11 13:05] VITALS: BMI 60.4
--- OUTSIDE RECORDS SUMMARY | 2025-02-11 13:15 | XMS_ITS ---
[facility] Name [facility] Organization Unknown Care Team Organization Name Specialty Phone Email Start Date End Da te [facility] MANOLO RITESH Primary Care 05/01/2022 4
--- OUTSIDE RECORDS SUMMARY | 2025-02-11 13:15 | XMS_ITS | Clinical Summary ---
Author Organization [facility] [address] [place] [address] [address] [place] [address] Phone Care Team Providers Care Fitting Room Checker Name Role Phone Tyler Pastrana MD Primary Care Provider Allergies Active Allergy Reactions Criticality Noted Date Comments Amoxicillin Rash 05/22/2011 Penicillin V Hives 08/30/2012 Medications albuterol HFA (PROAIR HFA ; PROVENTIL HFA ; VENTOLIN HFA) 90 mcg/actuation inhaler Inhale 2 puffs by mouth. 02/21/2023 Active omeprazole (PriLOSEC) [address] capsule TAKE 1 CAPSULE BY MOUTH EVERY DAY 90 capsule 1 12/29/2024 Active Active Problems Problem Noted Date Diagnosed Date Tear of right biceps muscle 12/30/2024 Overview (12/30/2024): Bicep Repair completed 11/27/24. 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 Gastroesophageal reflux disease 02/06/2019 Lactose intolerance 02/06/2019 Depression 12/22/2013 Encounters Date Type Department Care Team Description 12/30/2024 9:30 AM EDT Office Visit Adult Medicine [facility] [address] [place], [place] [phone] Adrian Beck, KRISHAN Gastroesophageal reflux disease without esophagitis (Primary Dx); Tear of right biceps muscle, subsequent encounter; Encounter for screening for cardiovascular disorders from Last 3 Months Immunizations Name Administration Dates Next Due Influenza [...] Cigarettes Q uit: 03/24/2015 Smokeless Tobacco: Never Tobacco Cessation:Counseling Given: Not Answered Alcohol Use Standard Drinks/Week Comments Yes 0 (1 standard drink = 0.6 oz pur e alcohol) Sex and Gender Information Value Date Recorded Sex Assigned at Not on file Legal Sex Male 10:59 AM EST Gender Identity Not on file Sexual Orientation Not on file Obstetrics History Last Filed Vital Signs Vital Sign Reading Time Taken Comments Blood Pressure 129/94 12/30/2024 9:25 AM EDT Pulse 78 12/30/2024 9:25 AM EDT Temperature 36.2 C (97.2 F) 12/30/2024 9:25 AM EDT Respiratory Rate 14 12/30/2024 9:25 AM EDT Oxygen Saturation - - Inhaled Oxygen Concentration - - Weight 80.7 kg (178 lb) 12/30/2024 9:25 AM EDT Height 170.2 cm (5' 7 ) 12/03/2023 5:07 PM EDT Body Mass Index 27.88 12/03/2023 5:07 PM EDT Plan of Treatment Upcoming Encounters Date Type Department Care Team (Late st Contact Info) Description 03/03/2025 8:50 AM EDT Consult Gastroenterology - [address] [facility] [address] [place] [address] Lyle Lackey PA [address] [facility] [address] [place] [address] 11/04/2025 4:00 PM EDT Office Visit Adult Medicine [facility] [address] [place] [address] Tyler Pastrana MD [address] [place] [address] Health Maintenance Due Date Last Done Comments Hepatitis B Vaccines (1 of 3 - 19+ 3-dose series) 2007 HIV Screening 05/22/2022 Hepatitis C Screening 05/22/2022 Social Influencers of Health Screening 05/22/2022 COVID-19 Vaccine (3 - 2023-2 5 season) 2024 10/18/2020, 09/27/2020 Depression Screening 06/24/2024 Influenza Vaccine (#1) 2025 , 04/10/2019 Cholesterol Screening (Lipid Panel) 10/02/2026 10/02/2021 DTaP,Tdap,and Td Vaccines (4 - Td or Tdap) 10/14/2033 10/15/2023, 09/29/2021, 04/24/2011 HIB Vaccines Aged Out No [...] on patient's age to complete this topic Pneumococcal Vaccine: Pediatrics (0 to 5 Years) and At-Risk Patients (6 to 49 Years) Discontinued RSV Immunization Patients Under 20 months Aged Out No longer eligible based on patient's age to complete this topic Varicella Vaccines Aged Out No longer eligible based on patient's age to complete this topic Insurance [employer] Care Teams Fitting Room Checker Relationship Specialty Start Date End Date Tyler Pastrana MD [address] [place] [address] PCP - General 08/29/22
== END 2025-02-11 13:31 | disposition home or self-care (01) ==
LOC: HO.HOS 13:01
PROVIDERS: PCP Internal Medicine; Visit Provider Orthopaedic Surgery
DX: S46.211A Strain of muscle, fascia and tendon of other parts of biceps, right arm, initial encounter (principal)
CPT/HCPCS: 99024

== ENCOUNTER → 2025-02-11 13:01 | Outpatient (BNVA) | payer OTHER, BC, SELFPAY | PROVIDERS: PCP Internal Medicine; Visit Provider Orthopaedic Surgery | DX: S46.211A Strain of muscle, fascia and tendon of other parts of biceps, right arm, initial encounter (principal); X58.XXXA Exposure to other specified factors, initial encounter; Y93.9 Activity, unspecified; Y92.9 Unspecified place or not applicable; Y99.9 Unspecified external cause status | CPT/HCPCS: 99212 ==

== ENCOUNTER 2025-02-25 09:28 | Outpatient (RCR) | payer OTHER, BC, SELFPAY ==
--- NOTE | 2024-12-15 14:11 | MHC.OT.OEV ---
[address] [phone] F: [phone] Occupational Therapy Evaluation Patient Name: Jevon Calzada Diagnosis: (R) Rupture of distal biceps tendon Date of Onset: 11/23/24 Date of Surgery: 11/27/24 Attending Provider: Anusha Griffith Prescribed Treatment: Follow Up Appointment: 01/04/25 History of Current Condition: Patient is a 34 y/o (R) handed male with no significant PMHx who is s/p 2.4 weeks distal biceps tendon repair currently in a hinge brace locked at 45* extension. Pert medical report he was placed in the wrong brace, patient clarified this by stating a (L)brace was placed which was later changed to a (R)hinge brace. He reports DOI was 6/2 when he was at work lifting a cart and heard a tearing sound and his arm went limp . 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 Report his PLOF as (I)ADLs/IADLs and lives with and a 3 children. He reported 5/10 pain at rest and 9/10 pain with movement that is dull and aching. He enjoys being outside and his hobbies include fishing, hiking, and he likes to ruben. 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 (I)ADLs/IADLs enjoys outdoor activities Living Situation, Family and/or Social Support: Lives with and children Current Level of Function and Occupation Self Care, Employment, Leisure: Sleep: wakes up with sore wrist and should Driving: Restricted with driving Vision: Balance: Pain Assessment Pain Score: 9 Pain Scale Used: Numeric (0 - 10) Pain Location and Description: 5/10 at rest 9/10 during movement dull aching (R)elbow Aggravating Factors: Alleviating Factors: Pain meds Skin and Soft Tissue Assessment Skin and Soft Tissue: Comments: Scar at cubital fossa with wound closer strips placed No s/s of infection Nerve assessment Ulnar Nerve: Median Nerve: Radial Nerve: Comments: reports numbness/ feeling weird near the insertion of the biceps Sensory Assessment Temperature: Light Touch: Proprioception: Vibration: Comments: Edema Assessment Upper Extremity: Lower Extremity: Comments: Dexterity Assessment Dexterity: Comments: Special Tests Comments: AROM(PROM) Strength Cervical Cervical Flexion: Cervical Extension: Cervical Lateral Flexion: Cervical Rotation: Comments: Shoulder Flexion: Extension: Abduction: Internal Rotation: External Rotation: Comments: Flexion: Extension: Abduction: Internal Rotation: External Rotation: Comments: Elbow Flexion: 110* Extension: locked at 45* Pronation: Supination: Comments: Flexion: Extension: Pronation: 30 Supination: 30 Comments: Wrist Flexion: 70 Extension: 60 Ulnar Deviation: Radial Deviation: Comments: Flexion: Extension: Ulnar Deviation: Radial Deviation: Comments: Thumb Thumb CMC Flexion: Thumb MCP Flexion: Thumb IP Flexion: Radial Abduction: Palmar Abduction: Pinckard (Kapandji 0-10): Comments: Digits Index MCP: PIP: DIP: Long MCP: PIP: DIP: Ring MCP: PIP: DIP: Small MCP: PIP: DIP: Comments: can make a composite fist Gross Grasp: Lateral Pinch: Two-Point Pinch: Three-Jaw Conor: Comments: NOT ASSESSED AT THIS TIME. Patient Education Primary Language: Facilities Flight Check Pilot Required: No Current Knowledge: Understands information with skills for self-management Teaching Method: Handouts Verbal Education Needs Identified on Evaluation: Equipment Use Exercise Pain How did patient/family demonstrate learning? Patient demonstrates Patient verbalizes Barriers to Learning: None Readiness for Learning: Accepting Who was educated? Patient Comments: Plan of Care Assessment: Based on initial OT evaluation patient is s/p 2.4 weeks distal bicep tendon repair at this time he presents with impaired ROM, impaired strength, pain, impaired skin integrity and impaired performance during self care tasks. During assessment patient had wound closer strips in place, there were no s/s of skin break down. He reported that his bicep felt weird. He also demonstrated (I) with donning/doffing elbow brace. Due to the documented impairments it is recommended that patient receive skilled OT in order for patient to achieve functional use of his (R)UE and his PLOF. Thank you for your referral. STG Duration: 2 weeks Short Term Goals: Patient will be (I) with elbow ROM restrictions Patient will be (I) with scar massage Patient will increase (R) elbow supination to 40* without report of pain Patient will increase (R) elbow pronation to 40* without report of pain Patient will increase (R) elbow flexion to 120* without report of pain Patient will report 3/10 pain in (R) elbow LTG Duration: 6 weeks Mcc Goals: LTGS will be updated per protocol Frequency and Duration: The patient will be seen 2x a week for 4 weeks Treatment Plan: Therapeutic Exercise Therapeutic Activity Home Exercise Program Splinting Neuro Re-ed Patient Education Desensitization/Sensory Re-ed Edema Control ADL Training Ultrasound NMES Iontophoresis Paraffin Fluidotherapy MHP Cold Packs Joint Mobilization Soft Tissue Mobilization Kinesiotaping Other (see comments) skilled OT eval and treat Electronically Signed By: Darcy Alonso OTR/L, CLT Reviewed/agree with student documentation: Therapist: Please sign and return to therapist, Thank you for your referral.
--- NOTE | 2024-12-31 15:54 | MHC.OT.OP ---
[address] [phone] F: [phone] Occupational Therapy Progress Note Patient Name: Jevon Calzada Diagnosis: (R) Rupture of distal biceps tendon Date of Surgery: 11/27/24 Date of Evaluation: 12/15/24 Treatments to Date: 7 Cancellations to Date: No Shows to Date: Subjective: My shoulder is really hurting. Pain Score: 10 Pain Location: (R)elbow Objective Measures: AROM: Elbow 120* flexion Wrist 65* flexion, 45* extension, radial deviation 5*, Ulna deviation 50* Pronation 70*, supination 72* Status: Progressing Assessment: patient is 5 weeks postop. Patient is actively participating in skilled OT achieving all of his STGs. He is compliant with HEP and scar massage and his was educated in scare massage. At this time he is increasing his ROM steadily, knowing his limitations. He reports no pain of the elbow but does have pain at the shoulder. His skin integrity is good and his scar is soft and mobile. OT will continue with POC and will slowly progress patient as indicated. Short Term Goals: Patient will be (I) with elbow ROM restrictions - GOAL MET Patient will be (I) with scar massage - GOAL MET Patient will increase (R) elbow supination to 40* without report of pain- GOAL MET Patient will increase (R) elbow pronation to 40* without report of pain - GOAL MET Patient will increase (R) elbow flexion to 120* without report of pain - GOAL MET Patient will report 3/10 pain in (R) elbow Mcfp Goals: LTGS will be updated per protocol Frequency and Duration: The patient will be seen 2x a week for 4 weeks Treatment Plan: Therapeutic Exercise Therapeutic Activity Home Exercise Program Splinting Neuro Re-ed Patient Education Desensitization/Sensory Re-ed Edema Control ADL Training Ultrasound NMES Iontophoresis Paraffin Fluidotherapy MHP Cold Packs Joint Mobilization Soft Tissue Mobilization Kinesiotaping Other (see comments) skilled OT eval and treat Electronically Signed By: SHAREE Robles/Leigh Ann, CLT Reviewed/agree with student documentation: Therapist:
--- NOTE | 2025-02-25 10:14 | MHC.OT.DC ---
[facility] [place] Office [address] [phone] F: [phone] F: [phone] Occupational Therapy Discharge Note Patient Name: Jevon Calzada Provider: Anusha Griffith Diagnosis: (R) Rupture of distal biceps tendon Date of Surgery: 11/27/24 Date of Evaluation: 12/15/24 Date of Discharge: Treatments to Date: 19 Cancellations to Date: No Shows to Date: Discharge Status: Achieved Goals Improved Function Independent with HEP Patient Elected to Stop Discharge Summary: At this time patient is d/c'd from skilled OT services as he has achieved maximal potential during therapy as he has achieved 94lbs. (R)payroll representative strength, is (I) with HEP and has achieved functional ROM with elbow flexion/extension. It was noted patient has limited wrist extension achieving 55*, he was educated to continue with wrist HEP and prayer stretch was added to his HEP. Patient will contact [facility] with any questions or concerns. Thank you for your referral he was a pleasure to work with. Electronically Signed By: SHAREE Robles/Leigh Ann, CLFrida Reviewed/agree with student documentation: Therapist: Please Sign and return to therapist, thank you for your referral.
== END 2025-02-25 10:15 | disposition home or self-care (01) ==
LOC: HO.OT 09:28
PROVIDERS: PCP Internal Medicine; Visit Provider Physician Assistant
DX: S46.211A Strain of muscle, fascia and tendon of other parts of biceps, right arm, initial encounter (principal)
CPT/HCPCS: 97110; 97140; 97165; 97166

== ENCOUNTER 2025-03-22 11:48 | Outpatient (AMB) | payer OTHER, SELFPAY ==
--- NOTE | 2025-03-22 11:49 | A.OFFVIS_ITS ---
Intake Visit Reasons: OV/WC-RT bicep tendon repair 11/27/24 per NE Intake Note: Daryl is a 34 year old right hand dominant male who presents today for a post operative appointment s/p right bicep tendon repair 11/27/24. 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 He reports that work is going well and he has been adhering to the weight restrictions. Overall he is doing well with some continued weakness which he understands will take some time to rebuild. Only feels an aching pain after increased activities. Allergies amoxicillin (AMOXICILLIN) Allergy (Severe, Verified 03/22/25 11:53) Anaphylaxis penicillin V Allergy (Severe, Verified 03/22/25 11:53) Anaphylaxis Penicillins (PENICILLINS) Allergy (Severe, Verified 03/22/25 11:53) Anaphylaxis HPI HPI OV/WC-RT bicep tendon repair 11/27/24 per NE: Details: Daryl is a 34 year old right hand dominant male who presents today for a post operative appointment s/p right bicep tendon repair 11/27/24. 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 He reports that work is going well and he has been adhering to the weight restrictions. Overall he is doing well. He feels occasional aching after increased activities. 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 He is doing very well. He would like to return to work without restrictions. I think this is reasonable given his exam. I do think he needs to be aware of how he is feeling and if he has any since that he has any worsening symptoms he should let me know. I wrote him a note to return to work without restrictions. I would like to see him back in 2 months' time for final eval. Coding Level of Care Code Global (57340) Diagnoses Rupture of right distal biceps tendon S46.211A
== END 2025-03-22 12:01 | disposition home or self-care (01) ==
LOC: HO.HOS 11:48
PROVIDERS: PCP Internal Medicine; Visit Provider Orthopaedic Surgery
DX: S46.211A Strain of muscle, fascia and tendon of other parts of biceps, right arm, initial encounter (principal)
CPT/HCPCS: 99213

== ENCOUNTER → 2025-03-22 11:48 | Outpatient (BNVA) | payer OTHER, BC, SELFPAY | PROVIDERS: PCP Internal Medicine; Visit Provider Orthopaedic Surgery | DX: Z98.890 Other specified postprocedural states (principal); S46.211D Strain of muscle, fascia and tendon of other parts of biceps, right arm, subsequent encounter | CPT/HCPCS: 99212 ==

== ENCOUNTER 2025-04-05 07:43 | Emergency (ER) | payer BC, SELFPAY ==
[2025-04-05 07:44] VITALS: BP 146/99; PULSE 94; RESP 16; TEMP 36.3; O2SAT 98; BMI 27.3
[2025-04-05 07:54] VITALS: BP 146/99; PULSE 94; RESP 16; TEMP 36.3; O2SAT 98
--- NOTE | 2025-04-05 08:15 | PC.NURSE ---
34 M c/o R ear fullness and hearing loss since waking up this morning, sts some dizziness as well but also sts he has vertigo. Pt sts he tried ear drops and it didn't help, denies cold/flu sx. A+OX4, calm, cooperative. RR even and unlabored.
--- OUTSIDE RECORDS SUMMARY | 2025-04-05 08:29 | XMS_ITS | Encounter Summary ---
Author Organization [facility] Address [address] [place] [address] Care Team Providers Care Consulting Sales Manager Name Role Phone Tyler Pastrana MD Primary Care Provider [phone] Encounter Details Date Type Department Care Team (Late st Contact Info) Description 03/25/2025 Lab Requisition [facility] Main Lab [address] [place] [address] Family history of malignant neoplasm of digestive organs Social History Tobacco Use Types Packs/Day Years Used Date Smoking Tobacco: Former Cigarettes Q uit: 03/24/2015 Smokeless Tobacco: Never Alcohol Use Standard Drinks/Week Comments Yes 0 (1 standard drink = 0.6 oz pur e alcohol) occ Sex and Gender Information Value Date Recorded Sex Assigned at Not on file Legal Sex Male 10:59 AM EST Gender Identity Not on file Sexual Orientation Not on file documented as of this encounter Plan of Treatment Upcoming Encounters Date Type Department Care Team (Late st Contact Info) Description 11/04/2025 4:00 PM EDT Office Visit Adult Medicine [address] [address] Tyler Pastrana MD [address] [place] [id number] documented as of this encounter Procedures Procedure Name Priority Date/Time Associated Diagnosis Comments TISSUE EXAM Routine 03/24/2025 Family history of malignant neoplasm of digestive organs documented in this encounter Results * Tissue Exam (03/24/2025) Final Diagnosis A. Stomach, random biopsy: Unremarkable gastric mucosa. No H. Pylori identified on H&E slide. B. Gastroesophageal junction, biopsy: Squamous epithelium with features of reflux esophagitis. Unremarkable gastric-type mucosa. C. Terminal ileum, biopsy: Small intestinal mucosa with lymphoid aggregates. No acute inflammation or dysplasia. D. Ileocecal valve, biopsy: Unremarkable intestinal mucosa. No evidence of microscopic or active colitis. E. Polyp, transverse colon, biopsy: Tubular adenoma. 03/26/2025 9:22 AM EDT [facility] ([facility] at 0921 EDT Gross Description A. Stomach, random: Received in formalin labeled stomach random , are 3 lopez-white, irregular soft tissue fragments, ranging from 0.2 x 0.1 x 0.1 cm to 0.5 x 0.2 x 0.2 cm. The specimen is entirely submitted in cassette A1, 3 pieces. MG, PA (ASCP)CM- 03/25/25 B. Esophagus, GE junction: Received in formalin labeled GE junction , are 3 lopez-white, irregular soft tissue fragments, averaging 0.2 x 0.2 x 0.1 cm. The specimen is entirely submitted in cassette B1, 3 pieces. MG PA (ASCP)CM- 03/25/25 C. Small Intestine, Ileum, terminal ileum: Received in formalin labeled terminal ileum , is a lopez-white, irregular soft tissue fragment, measuring 0.5 x 0.2 x 0.2 cm. The specimen is entirely submitted cassette C1, 1 piece. MG PA (ASCP)CM- 03/25/25 D. Large intestine, Ileocecal valve, : Received in formalin labeled ileocecal valve , are 2 lopez-white, irregular soft tissue fragments, averaging 0.5 x 0.3 x 0.2 cm. The specimen is entirely submitted in cassette A1, 2 pieces. MG, PA (ASCP)CM- 03/25/25 E. Large Intestine, Transverse Colon, : Received in formalin labeled transverse colon polyp , are 5 lopez-white, polypoid soft tissue fragments, ranging from 0.2 x 0.1 x 0.1 cm to 0.5 x 0.2 x 0.2 cm. The specimen is entirely submitted in cassette E1, 5 pieces. CONRADO PIKE (ASCP)CM- 03/25/25 03/26/2025 9:22 AM EDT [facility] Disclaimer The technical components of this [place] [address] CLIA # [id number] 03/26/2025 9:22 AM EDT [facility] Tissue Transverse colon structure / Unknown 03/24/2025 03/25/2025 6:54 AM EDT Tissue specimen (specimen) Esophageal structure / Unknown 03/24/2025 03/25/2025 6:54 AM EDT Tissue specimen (specimen) Ileal structure / Unknown 03/24/2025 03/25/2025 6:54 AM EDT Tissue specimen (specimen) Ileocecal valve structure / Unknown 03/24/2025 03/25/2025 6:54 AM EDT Tissue specimen (specimen) Transverse colon structure / Unknown 03/24/2025 03/25/2025 6:54 AM EDT us LAB PATHOLOGY ORDERABLES Final R esult [facility] [address] [place] [address], documented in this encounter Visit Diagnoses Diagnosis Family history of malignant neoplasm of digestive organs documented in this encounter Care Teams Consulting Sales Manager Relationship Specialty Start Date End Date Tyler Pastrana MD [address] [place] [address] PCP - General 08/29/22 documented as of this encounter
--- OUTSIDE RECORDS SUMMARY | 2025-04-05 08:29 | XMS_ITS | Clinical Summary ---
Author Organization [facility] [address] [place] [address] [place] [phone] Phone Care Team Providers Care Supercharger Repair Supervisor Name Role Phone Tyler Pastrana MD Primary Care Provider +1- [phone] Allergies Active Allergy Reactions Criticality Noted Date Comments Amoxicillin Rash 05/22/2011 Penicillin V Hives 08/30/2012 Sulfa (Sulfonamide Antibiotics) 02/22 Medications albuterol HFA (PROAIR HFA ; PROVENTIL HFA ; VENTOLIN HFA) 90 mcg/actuation inhaler Inhale 2 puffs by mouth. 3 Active omeprazole (PriLOSEC) [address] capsuleInddelfina ons:Gastroesoph ageal reflux disease without esophagitis Take 1 capsule (40 mg total) by mouth 2 (two) times a day. 180 each 3 5 03/03/20 26 Active polyethylene glycol (Golytely) 236-22.74-6.74 -5.86 gram solution Take 4L by mouth once for one dose. May substitue any PEG. Starting at 2PM the day before your procedure drink 1 8oz glasses at your own pace until you complete half of the gallon. Finish 2nd half of the gallon at 8PM. 4000 mL 5 Active bisacodyL (DULCOLAX) 5 mg EC tablet Take 2 tablets by mouth right before beginning bowel prep. See instructions provided by the office 2 tablet 5 Active Active Problems Problem Noted Date Diagnosed Date Tear of right biceps muscle 12/30/2024 Overview (12/30/2024): Bicep Repair completed 11/27/24. 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 Gastroesophageal reflux disease 02/06/2019 Assessment & Plan (03/03/2025 9:44 AM EDT): Longstanding Symptoms despite omeprazole 40 mg daily Increase to twice daily GERD handout provided Family history of Edmonds's EGD for further evaluation Orders: Ambulatory referral to Gastroenterology omeprazole (PriLOSEC) [address] capsule; Take 1 capsule (40 mg total) by mouth 2 (two) times a day. Lactose intolerance 02/06/2019 Depression 12/22/2013 Encounters Date Type Department Care Team Description 03/26/2025 Telephone Gastroenterology - [place] 175 [facility] 175 [facility] 200 [place] [address] Freeman Irene DO 03/26/2025 Results Follow-Up Adult Medicine [address] [address] Tyler Pastrana MD 03/25/[address] [facility] Main Lab [address] [place] [address] Family history of malignant neoplasm of digestive organs 03/03/2025 8:50 AM EDT Consult Gastroenterology - [address] [place] [address] 299 [facility] [address] [place] [phone] Lyle Lackey PA BRBPR (bright red blood per rectum) (Primary Dx); Gastroesophageal reflux disease without esophagitis; Change in consistency of stool; Frequent bowel movements 03/03/2025 Telephone Gastroenterology - [address] [place] [address] 299 [facility] [address] [place] [phone] Sonia Mccormick MA from Last 3 Months Immunizations Immunization Administration Dates Next Due Influenza Quadravalent, MDCK [...] Father's side 1 Bipolar disorder Maternal Grandfather Edmonds's esophagus Mother Other: Healthy Mother Colon cancer Mother's Brother Relation Name Status Comments Father Father's side 1 Father's side 2 Maternal Grandfather Mother Mother's Brother Social History Tobacco Use Types Packs/Day Years [...] - Inhaled Oxygen Concentration - - Weight 79.1 kg (174 lb 6.4 oz) 03/03/2025 8:39 A M EDT Height 170.2 cm (5' 7 ) 03/03/2025 8:39 AM EDT Body Mass Index 27.31 03/03/2025 8:39 AM EDT Plan of Treatment Upcoming Encounters Date Type Department Care Team (Late st Contact Info) Description 11/04/2025 4:00 PM EDT Office Visit Adult Medicine [address] [address] Tyler Pastrana MD [address] [place] [address] Health Maintenance Due Date Last Done Comments Hepatitis B Vaccines (1 of 3 - 19+ 3-dose series) 2007 HPV Vaccines (1 - 3-dose SCD M series) 2015 HIV Screening 05/22/2022 Hepatitis C Screening 05/22/2022 Social Influencers of Health Screening 05/22/2022 Depression Screening 06/24/2024 COVID-19 Vaccine (3 - 2024-2 6 season) 2025 10/18/2020, 09/27/2020 Influenza Vaccine (#1) 2025 , 04/10/2019 Cholesterol Screening (Lipid Panel) 10/02/2026 10/02/2021 Colorectal Cancer Screening: Colonoscopy 03/24/2030 03/24/2025 DTaP,Tdap,and Td Vaccines (4 - Td or Tdap) 10/14/2033 10/15/2023, 09/29/2021, 04/24/2011 RSV Immunization Adult Patients (1 - 1-dose 75+ series) 2063 HIB Vaccines Aged Out No longer eligi [...] on patient's age to complete this topic Procedures Procedure Name Priority Date/Time Associated Diagnosis Comments TISSUE EXAM Routine 03/24/2025 Family history of malignant neoplasm of digestive organs from Last 3 Months Results * Tissue Exam (03/24/2025) Final Diagnosis [...] biopsy: Tubular adenoma. 03/26/2025 9:22 AM EDT [facility] at 0921 EDT Gross Description A. Stomach, random: Received in formalin labeled stomach random , are 3 lopez-white, irregular soft tissue fragments, ranging from 0.2 x 0.1 x 0.1 cm to 0.5 x 0.2 x 0.2 cm. The specimen is entirely submitted in cassette A1, 3 pieces. MG PA (ASCP)CM- 03/25/25 B. Esophagus, GE junction: [...] entirely submitted in cassette A1, 2 pieces. MG PA (ASCP)CM- 03/25/25 E. Large Intestine, Transverse Colon, : Received in formalin labeled transverse colon polyp , are 5 lopez-white, polypoid soft tissue fragments, ranging from 0.2 x 0.1 x 0.1 cm to 0.5 x 0.2 x 0.2 cm. The specimen is entirely submitted in cassette E1, 5 pieces. CONRADO PIKE (ASCP)CM- 03/25/25 03/26/2025 9:22 AM EDT [facility] Disclaimer The technical components of [place] [address] CLIA # [id number] 03/26/2025 9:22 AM EDT [facility] Tissue Transverse colon structure / Unknown [...] us LAB PATHOLOGY ORDERABLES Final R esult [facility] [address] [place] [phone], from Last 3 Months Insurance [employer] DOMESTIC Care Teams Supercharger Repair Supervisor Relationship Specialty Start Date End Date Tyler Pastrana MD [address] [place] [address] PCP - General 08/29/22
--- OUTSIDE RECORDS SUMMARY | 2025-04-05 08:29 | XMS_ITS | Encounter Summary ---
Author Organization [facility] Address [address] [place] [address] Care Team Providers Care Social Worker Psychiatric Name Role Phone Tyler Pastrana MD Primary Care Provider +1- [phone] Encounter Details Date Type Department Care Team (Late Contact Info) Description 03/26/2025 Results Follow-Up Adult Medicine [address] [place] [phone] Tyler Pastrana MD [address] [place], [place] Social History Tobacco Use Types Packs/Day Years [...] Encounters Date Type Department Care Team (Late Contact Info) Description 11/04/2025 4:00 PM EDT Office Visit Adult Medicine [address] [place] [phone] Tyler Pastrana MD [address] [place] [address] documented as of this encounter Visit Diagnoses Not on filedocumented in this encounter Care Teams Social Worker Psychiatric Relationship Specialty Start Date End Date Tyler Pastrana MD [address] [place] [address] PCP - General 08/29/22 documented as of this encounter
--- NOTE | 2025-04-05 08:55 | ED_ITS ---
HPI - General Adult General Chief complaint: Ear Problems Stated complaint: hearing loss rt ear Time Seen by Provider: 04/05/25 08:10 Source: patient and old records reviewed Mode of arrival: ambulatory Limitations: no limitations History of Present Illness ED Provider: DEEPA Barriga HPI narrative: 34-year-old male without significant medical history presents to the ED due to hearing loss of the right ear. Patient states he woke up this morning and noticed ?muffled? hearing on the right side. Patient used wax drops this morning let them sit for approximately 5 minutes but did not get any wax out. Patient states he is feeling a bit off balance when walking. Denies fevers, headaches, visual changes, weakness. MD complaint: R sided hearing loss Related Data Home Medications ?Medication ?Instructions ?Recorded ?Confirmed omeprazole 40 mg capsule,delayed 40 mg PO DAILY release Previous Rx's ?Medication ?Instructions ?Recorded ofloxacin 0.3 % ear drops 5 drp otic (ears) DAILY 7 da ys #5 04/05/25 mL Allergies Allergy/AdvReac Type Severity Reaction Status Date / Time amoxicillin (AMOXICILLIN) Allergy Severe Anaphylaxis Verified 04/05/25 07:46 penicillin V Allergy Severe Anaphylaxis Verified 04/05/25 07:46 Penicillins (PENICILLINS) Allergy Severe Anaphylaxis Verified 04/05/25 07:46 Review of Systems Review of Systems: CONST: Negative for fever, body aches and chills. HENT: Negative for neck pain/stiffness, headache, congestion, sore throat, swelling. POS R sided muffled hearing EYES: Negative for discharge/pain or vision changes. RESP: Negative for cough/hemoptysis and shortness of breath. CV: Negative chest pain, difficulty breathing, palpitations. ABD: Negative pain, nausea, vomiting. : Negative increase frequency, dysuria, blood in urine or stool. MUSC: Negative for muscle aches, edema. SKIN: Negative rash, lesions/sores. NEURO: Negative headache, dizziness, weakness. Yes all other systems are reviewed and are negative PMFSH Past Medical History Attestation statement: The following information was validated with the patient. Source: old records reviewed and nursing notes reviewed Medical History Asthma GERD (gastroesophageal reflux disease) Surgical History H/O vasectomy Hx of LASIK [place] teeth extracted Social History Social History Alcohol intake: never Patient Tobacco Use Status: Former Tobacco user Tobacco use type: Cigarette Smoked in Last 30 Days: No Use of substances other than those prescribed or required for medical reasons: No Substance Use Type: Marijuana Advance Directives: No Advance Directives Information Provided: No Do you have a plan to hurt others: No Plan Current occupational status: employed 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 HEENT: ?NC, AT. MMM. EOMI, clear conjunctiva, oropharynx clear. Moderate amount of wax seen in R ear, external canal mildly erythematous, tympanic membrane partially obstructed and cannot be fully visualized, no mastoid tenderness, does have pain with tragal manipulation NECK: ?Supple without lymphadenopathy.? No stiffness or restricted ROM. HEART:? Normal rate and regular rhythm, normal S1/S2, no m/r/g LUNGS:? CTAB, moving air well. No crackles or wheezes are heard. EXTREMITIES: ?Without cyanosis, clubbing or edema. NEUROLOGICAL: ?Grossly nonfocal. Alert and oriented, moving all 4 extremities. Observed to ambulate with normal gait. Skin: ?Warm and dry without any rash. Medications Administered Discontinued Medications Generic Name Dose Route Start Last Admin Trade Name Freq PRN Reason Stop Dose Admin Docusate Sodium 100 mg 04/05/25 09:59 04/05/25 10:07 Docusate Sodium 100 Mg/10 Ml Liquid PO 04/05/25 10:00 100 mg ONCE ONE Administration Medical Decision Making Medical Decision Making MDM Narrative: 34-year-old male without significant medical history presents to the ED due to hearing loss of the right ear. Patient states he woke up this morning and noticed ?muffled? hearing on the right side. Patient used wax drops this morning let them sit for approximately 5 minutes but did not get any wax out. Patient states he is feeling a bit off balance when walking. On physical exam, moderate amount of wax seen in R ear, external canal mildly erythematous, tympanic membrane is partially obstructed and cannot be visualized, no mastoid tenderness, however does have pain with tragal manipulation. dulcosate liquid was placed into the R ear canal and allowed to sit for approximately 20 minutes, ear was flushed and minimal cerumen evacuated. On re examination of the R ear, tympanic membrane fully Differential Diagnosis Differential Diagnoses: The differential diagnosis associated with the presentation includes Otitis media Perforated otitis media Otitis externa Cerumen impaction Discharge Plan Discharge Clinical Impression: Otitis externa Patient Disposition: Home, Self-Care Additional Instructions: You were evaluated in the ED today due to muffled hearing/hearing loss of the right ear. During physical exam you had moderate amount of wax in the right ear, this was flushed, in the external ear canal looked to be red and irritated. You are being prescribed a 7 day course of ofloxacin drops, please place 5 drops daily into the right ear. Additionally for pain management you can take 500 mg of Tylenol, and 400 mg of ibuprofen every 6 hours. Please return to the emergency department if you experience worsening ear pain, discharge from the ear, worsening hearing loss, pain or tenderness of the bony prominence behind the ear, fevers over 100.4?, or any new/worsening/concerning symptoms. Prescriptions: New ofloxacin 0.3 % drops 5 drp otic (ears) DAILY 7 Days Qty: 5 0RF No Action omeprazole 40 mg capsule,delayed release(DR/EC) 40 mg PO DAILY Print Language: [place] Islander
--- NOTE | 2025-04-05 09:16 | PC.NURSE ---
Med requested douglas from pharmacy, awaiting med.
[2025-04-05 09:18] VITALS: BP 137/95; PULSE 82; RESP 18; TEMP 36.7; O2SAT 98
[2025-04-05 11:51] VITALS: BP 142/100; PULSE 90; RESP 18; O2SAT 97
[2025-04-05 11:52] VITALS: BP 142/100; PULSE 90; RESP 18; TEMP -17.7; TEMP 0; O2SAT 97
== END 2025-04-05 11:53 | disposition home or self-care (01) ==
PROVIDERS: Emergency Provider Emergency Medicine; PCP Internal Medicine
DX: H60.91 Unspecified otitis externa, right ear (principal); Z88.0 Allergy status to penicillin
CPT/HCPCS: 99284

== ENCOUNTER 2025-05-17 13:25 | Outpatient (AMB) | payer OTHER, SELFPAY ==
--- NOTE | 2025-05-17 13:26 | A.OFFVIS_ITS ---
Intake Visit Reasons: OV-WC-RT bicep tendon repair 11/27/24 per NE Intake Note: Daryl is a 34 year old right hand dominant male who presents today for a post operative appointment s/p right bicep tendon repair 11/27/24. 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 Patient reports that he is doing well, he has some soreness at the end of the day. He is taking Tylenol & Ibuprofen PRN - Mostly at the end of the day. Allergies amoxicillin (AMOXICILLIN) Allergy (Severe, Verified 04/05/25 07:46) Anaphylaxis penicillin V Allergy (Severe, Verified 04/05/25 07:46) Anaphylaxis Penicillins (PENICILLINS) Allergy (Severe, Verified 04/05/25 07:46) Anaphylaxis HPI HPI OV-WC-RT bicep tendon repair 11/27/24 per NE: Details: Daryl is a 34 year old right hand dominant male who presents today for a post operative appointment s/p right bicep tendon repair 11/27/24. 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 Patient reports that he is doing well, he has some soreness at the end of the day. He is taking Tylenol & Ibuprofen PRN - Mostly at the end of the day. 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 Full range of motion right elbow with respect to flexion and extension. There is a 3-5 degree loss of terminal supination. He has 4+ out of 5 strength with resisted supination. Assessment & Plan Assessment & Plan (1) Rupture of right distal biceps tendon: Code(s): S46.211A - Strain of muscle, fascia and tendon of other parts of biceps, right arm, initial encounter Category: Medical Plan: 34-year-old gentleman with a 6 months status post right biceps injury and subsequent repair. Overall he is doing well but still with mild weakness and some occasional discomfort. I would like to see him back in 3 months at which point I am sure he will be at [facility]. He may continue to work as tolerated without restrictions Coding Level of Care Code Est Pt Level 3 (69548) Diagnoses Rupture of right distal biceps tendon S46.211A
--- OUTSIDE RECORDS SUMMARY | 2025-05-17 18:06 | XMS_ITS | Encounter Summary ---
Author Organization [facility] Address [address] [place] [address] Care Team Providers Care Embedded Systems Designer Name Role Phone Tyler Pastrana MD Primary Care Provider [phone]- [phone] Encounter Details Date Type Department Care Team (Late st Contact Info) Description 03/25/2025 Lab Requisition [facility] Main Lab [address] [place] [address] Freeman Irene, DO [address] [facility] [address] [place] [address] Family history of malignant neoplasm of digestive organs Social History Tobacco Use Types Packs/Day Years Used Date Smoking Tobacco: Former Cigarettes 1 Q uit: 03/24/2015 Smokeless Tobacco: Never Alcohol [...] 4:00 PM EDT Office Visit Adult Medicine [facility] [address] [place] [address] Tyler Pastrana MD [address] [place] [address] documented as of this encounter Procedures Procedure [...] biopsy: Tubular adenoma. 03/26/2025 9:22 AM EDT [facility] at 0921 EDT Gross Description [...] entirely submitted in cassette B1, 3 pieces. MG, PA (ASCP)CM- 03/25/25 C. Small Intestine, Ileum, terminal ileum: Received in formalin labeled terminal ileum , is a lopez-white, irregular soft tissue fragment, measuring 0.5 x 0.2 x 0.2 cm. The specimen is entirely submitted cassette C1, 1 piece. MG, PA (ASCP)CM- 03/25/25 D. Large intestine, Ileocecal [...] PIKE (ASCP)CM- 03/25/25 03/26/2025 9:22 AM EDT [facility] Disclaimer The technical components of this case were performed at [address] [address] CLIA # [id number] 03/26/2025 9:22 AM EDT [facility] Tissue Transverse colon structure / [...] Unknown 03/24/2025 03/25/2025 6:54 AM EDT us Freeman Irene DO LAB PATHOLOGY ORDERABLES Final R esult [facility] [address] [place] [id number], documented in this encounter Visit Diagnoses Diagnosis Family history of malignant neoplasm of digestive organs documented in this encounter Care Teams Embedded Systems Designer Relationship Specialty Start Date End Date Tyler Pastrana MD [facility] [address] PCP - General 08/29/22 documented as of this encounter
--- OUTSIDE RECORDS SUMMARY | 2025-05-17 18:06 | XMS_ITS | Clinical Summary ---
Author Organization [facility] [address] [place] [address] [place] [phone] Phone Care Team Providers Care Wood Craftsman Name Role Phone Tyler Pastrana MD Primary Care Provider +1- [phone] Allergies Active Allergy Reactions Criticality Noted Date [...] Care Team Description 03/26/2025 Telephone Gastroenterology - [place] 175 [facility] 175 [facility] 200 [phone] Freeman Irene DO 03/26/2025 Results Follow-Up Adult Medicine [address] [address] Tyler Pastrana MD 03/25/2025 Lab Requisition [facility] Main Lab [address] [place] [address] Freeman Irene DO Family history of malignant neoplasm of digestive organs 03/03/2025 8:50 AM EDT Consult Gastroenterology - 299 [facility] 299 [facility] [phone] Lyle Lackey PA BRBPR (bright red blood per rectum) (Primary Dx); Gastroesophageal reflux disease without esophagitis; Change in consistency of stool; Frequent bowel movements 03/03/2025 Telephone Gastroenterology - 299 [facility] 299 [facility] [phone] Sonia Mccormick MA from Last 3 Months [...] 1 Q uit: 03/24/2015 Smokeless Tobacco: Never Tobacco [...] 4:00 PM EDT Office Visit Adult Medicine [address] [phone] Tyler Pastrana MD [address] [place] [address] Health Maintenance Due Date Last Done Comments [...] biopsy: Tubular adenoma. 03/26/2025 9:22 AM EDT [facility] at 0921 EDT Gross [...] PIKE (ASCP)CM- 03/25/25 03/26/2025 9:22 AM EDT [facility] Disclaimer The technical components [place] [address] CLIA # [id number] 03/26/2025 9:22 AM EDT [facility] Tissue Transverse colon structure / Unknown 03/24/2025 03/25/2025 6:54 AM EDT Tissue specimen (specimen) Esophageal structure / Unknown 03/24/2025 03/25/2025 6:54 AM EDT Tissue specimen (specimen) Ileal structure / Unknown 03/24/2025 03/25/2025 6:54 AM EDT Tissue specimen (specimen) Ileocecal valve structure / Unknown 03/24/2025 03/25/2025 6:54 AM EDT Tissue specimen (specimen) Transverse colon structure / Unknown 03/24/2025 03/25/2025 6:54 AM EDT Freeman Irene DO LAB PATHOLOGY ORDERABLES Final R esult [facility] [address] [place] [phone], from Last 3 Months Insurance * Guarantor: Denny Mcgee Account Type Relation to Patient Date of Phone Billing Address Personal/Family Self [address] [place] [phone] [facility] DOMESTIC Care Teams Wood Craftsman Relationship Specialty Start Date End Date Tyler Pastrana MD [address] [place] [address] PCP - General 08/29/22
--- OUTSIDE RECORDS SUMMARY | 2025-05-17 18:06 | XMS_ITS | Encounter Summary ---
Author Organization [facility] Address [address] [place] [address] Care Team Providers Care Bank Vault Custodian Name Role Phone Tyler Pastrana MD Primary Care Provider +1- [phone] Encounter Details Date Type Department Care Team ([facility] st Contact Info) Description 03/26/2025 Results Follow-Up Adult Medicine [facility] [address] [place] [address] Tyler Pastrana MD [address] [place] [address] Social History Tobacco Use Types Packs/Day Years [...] on file documented as of this encounter Progress Notes * Freeman Irene, DO - 04/27/2025 9:28 AM EST Please let the patient know that the colon polyp removed was benign, but precancerous. Given the type and size of the polyp, and based on current guidelines, I recommend that a surveillance colonoscopy is performed in [address] a reminder on the system for the patient to be contacted to have a surveillance colonoscopy in 5 years. High-fiber diet and avoidance of processed foods recommended. The patient may follow-up with a primary care provider as instructed. Thank you. Please let him know that the esophagus biopsies showed evidence of active acid related inflammationand for that reason, I recommend that he continues with the omeprazole and he avoids any spicy foods/EtOH/tobacco/meals that give him reflux. Thank you. documented in this encounter Plan of Treatment Upcoming Encounters Date Type Department Care Team (Late st Contact Info) Description 11/04/2025 4:00 PM EDT Office Visit Adult Medicine [facility] [address] [place] [address] Tyler Pastrana MD [address] [place] [address] documented as of this encounter Visit Diagnoses Not on filedocumented in this encounter Care Teams Bank Vault Custodian Relationship Specialty Start Date End Date Tyler Pastrana MD [address] [place] [address] PCP - General 08/29/22 documented as of this encounter
== END 2025-05-17 13:48 | disposition home or self-care (01) ==
PROVIDERS: PCP Internal Medicine; Visit Provider Orthopaedic Surgery
DX: S46.211A Strain of muscle, fascia and tendon of other parts of biceps, right arm, initial encounter (principal)
CPT/HCPCS: 99213

== ENCOUNTER → 2025-05-17 13:25 | Outpatient (BNVA) | payer BC, SELFPAY | PROVIDERS: PCP Internal Medicine; Visit Provider Orthopaedic Surgery | DX: Z98.890 Other specified postprocedural states (principal); S46.211D Strain of muscle, fascia and tendon of other parts of biceps, right arm, subsequent encounter | CPT/HCPCS: 99212 ==